=== PATIENT | female | born 1985 | race African-American/Black ===

== ENCOUNTER 2023-01-19 08:51 | Emergency (ER) | payer BC ==
--- OUTSIDE RECORDS SUMMARY | 2023-01-19 08:55 | XMS REPORT | Continuity of Care Document ---
:1985 Author Organization [facility] t Address [address] [facility] [address] [place] [address] Care Team Providers Name Role Phone PATY ALFREDO Primary Care Physician Unavailable ELAN OCHOA Attending Clinician Unavailable JANIA HUIZAR Attending Clinician Unavailable RADIOLOGY Attending Clinician Unavailable Radiology Attending Clinician Unavailable Karli NUGENT Attending Clinician Unavailable Karli Glover Attending Clinician Doctor Unassigned, [place] Attending Clinician Unavailable PATY ALFREDO Admitting Clinician Unavailable Payers Payer Name Policy Type Policy Number Effective Date Expiration Date [facility] BCBS 2 [id number] 2022 00:00:00 BCBS [facility] - [id number] 2022 00:00:00 OUT OF STATE Problems Condition Condition Condition Status Onset Resolution Last Treating Co mments Source Name Details Category Date Date Treatment Clinician Date QUENTIN on QUENTIN on Disease Active 2016-07 Univers CPAP CPAP 1-21 ity of 00:00: [address] Branch B12 B12 Disease Active Univers deficiency deficiency 8-05 it y of 00:00: [address] Branch Positive Positive Disease Active Unive rs ZULEYMA ZULEYMA 7-27 ity of (antin[place] Medical antibody) antibody) Bran ch Iron Iron Disease Active Univers deficiency deficiency 7-27 it y of anemia anemia 00:00: [place] 00 Medical Branch Contracept Contracept Disease Active U nivers aleisha aleisha 3-25 ity of [place] [facility] [place] Anxiety Anxiety Disease Active Univers disorder disorder 3-25 ity of 00:00: [place] 00 Medical Branch Bipolar Bipolar Disease Active Univers affective affective 3-25 ity of disorder, disorder, 00:00: Amanda vanessa current current Medical episode episode Branch manic manic without without psychotic psychotic symptoms symptoms Well woman Well woman Disease Active Overview : Univers exam exam 1-19 Formattin ity of 00:00: g of this [place] note Medical might be Branch different from the original. ICD10 Diagnosis Term [employer] Utility Seizure Seizure Disease Active Univers disorder disorder - ity of 00:00: [place] 00 Medical Branch Essential Essential Disease Active Uni vers hypertensi hypertensi -19 it y of on, benign [place], benign [place] [facility] Tobacco Tobacco Disease Active 2012-07 Univers use use 1-12 ity of disorder disorder 00:00: [place] [facility] Branch Morbid Morbid Disease Active 2012-07 Univers obesity obesity 1-12 ity of 00:00: [place] [facility] Allergies, Adverse Reactions, Alerts Allergy Allergy Status Severity Reaction(s) Onset Inactive Treating Comm ents Source Name Type Date Date Clinician NO KNOWN Drug Active [facility] [place] [facility] ALLERGIE Class ity of S [facility] Social History Social Habit Start Date Stop Date Quantity Comments Source History [facility] o f Alcohol Frequency [facility] History [facility] o f Alcohol Std Drinks [facility] History [facility] hospital o f Alcohol Binge [facility] History of tobacco Cigarette Smoker Kecia Richter - use External Alcohol intake 2022-08-27 2022-08-27 .86 /d Kecia hunter - 00:00:00 00:00:00 External Cigarettes smoked 2016-11-10 2016-11-10 Univers ity of current (pack per 00:00:00 00:00:00 [facility] ) - Reported Branch Cigarette 2016-11-10 2016-11-10 University of pack-years 00:00:00 00:00:00 [facility] Tobacco use and 2016-11-10 2016-11-10 Smokeless Universit y of exposure 00:00:00 00:00:00 tobacco non-user [facility] Alcohol Comment 2012-12-07 2012-12-07 every other Universi ty of 00:00:00 00:00:00 weekend [facility] Sex [birth year] Janet naranjoold - 00:00:00 00:00:00 External Smoking Status Start Date Stop Date Source Smokes tobacco daily 2022-08-27 00:00:00 Keciacaity Jimenezold - External Medications Ordered Filled Start Stop Current Ordering Indication Dosage Frequency Signature Comments Components Source Medication Medication Date Date Medication? Clinician (SIG) Name Name Amlodipine Yes 10mg Take 10 mg K elsey Besylate 10 2-15 by mouth Seyb old MG oral 11:03: daily - Tablet 39 Externa l Atenolol Yes 50mg Take 50 mg Sonido sey (TENORMIN) 2-15 by mouth Seybo ld 50 MG oral 11:03: daily - Tablet 39 Externa l Losartan Yes 1{tbl} Take 1 Kelse y Potassium-H 2-15 tablet by Sey bold CTZ 100-25 11:03: mouth - MG oral 39 daily Externa Tablet l buPROPion 2021-07- No 1{tbl} Take 1 Sonido sey HCl 75 MG 08-20-15 tablet by Seyb old oral Tablet 00:00: 00:00 mouth - 00 :00 every Externa morning l [place] 2021-07- No 1{capsu Take 1 Елена ey Carbonate 08-20 le} capsule by Sey bold 300 MG oral 00:00: 00:00 mouth 2 - Capsule 00 :00 times Externa daily l Olanzapine 2021-07- No 1{tbl} Take 1 Ke lsey (ZYPREXA) 5 08-20-15 tablet by ybold MG oral 00:00: 00:00 mouth at - tablet 00 :00 bedtime Externa l ketorolac 2021-07- No 30mg 30 mg, Unive rs (TORADOL) 0-18 10-18 Intramuscu ity of injection 16:15: 15:23 lar, ONCE, [place] 30 mg 00 :00 1 dose, On [facility] 04/29/22 at 1115, PENNY vitamin Yes 500ug Take 1 Univers B-12 8-18 tablet by ity of (VITAMIN 00:00: mouth [place] B-12) 500 00 daily. Medical mcg tablet Branch vitamin Yes 500ug Take 1 Univers B-12 8-18 tablet by ity of (VITAMIN 00:00: mouth [place] B-12) 500 00 daily. Medical mcg tablet Branch vitamin Yes 500ug Take 1 Univers B-12 8-18 tablet by ity of (VITAMIN 00:00: mouth [place] B-12) 500 00 daily. Medical mcg tablet Branch vitamin Yes 500ug Take 1 Univers B-12 8-18 tablet by ity of (VITAMIN 00:00: mouth [place] B-12) 500 00 daily. Medical mcg tablet Branch valsartan-h Yes [id number] 1{tbl} Take 1 Univers ydrochlorot 7-20 tablet by ity of hiazide 00:00: mouth [place] 160-25 mg 00 daily. Medical per tablet Branch valsartan-h Yes [id number] 1{tbl} Take 1 Univers ydrochlorot 7-20 tablet by ity of hiazide 00:00: mouth [place] 160-25 mg 00 daily. Medical per tablet Branch valsartan-h Yes [id number] 1{tbl} Take 1 Univers ydrochlorot 7-20 tablet by ity of hiazide 00:00: mouth [place] 160-25 mg 00 daily. Medical per tablet Branch valsartan-h Yes [id number] 1{tbl} Take 1 Univers ydrochlorot 7-20 tablet by ity of hiazide 00:00: mouth [place] 160-25 mg 00 daily. Medical per tablet Branch risperiDONE Yes Univer s 2 mg tablet 6-22 ity of 00:00: [place] 00 Medical Branch risperiDONE Yes Univer s 2 mg tablet 6-22 ity of 00:00: [place] 00 Medical Branch risperiDONE Yes Univer s 2 mg tablet 6-22 ity of 00:00: [place] 00 Medical Branch risperiDONE Yes Univer s 2 mg tablet 6-22 ity of 00:00: [place] 00 Medical Branch norgestimat Yes [id number] 1{tbl} Take 1 Univers e-ethinyl 5-03 tablet by ity o f estradiol 00:00: mouth [place] 0.18/0.215/ 00 daily. Medica l 0.25 mg-35 Branch mcg (28) tablet norgestimat 2017- Yes [id number] 1{tbl} Take 1 Univers e-ethinyl 5-03 tablet by ity o f estradiol 00:00: mouth [place] 0.18/0.215/ 00 daily. Medica l 0.25 mg-35 Branch mcg (28) tablet norgestimat Yes [id number] 1{tbl} Take 1 Univers e-ethinyl 5-03 tablet by ity o f estradiol 00:00: mouth [place] 0.18/0.215/ 00 daily. Medica l 0.25 mg-35 Branch mcg (28) tablet norgestimat Yes [id number] 1{tbl} Take 1 Univers e-ethinyl 5-03 tablet by ity o f estradiol 00:00: mouth [place] 0.18/0.215/ 00 daily. Medica l 0.25 mg-35 Branch mcg (28) tablet gabapentin Yes Univers 600 mg 3-01 ity of tablet 00:00: [place] [facility] gabapentin 2017-0 Yes Univers 600 mg 3-01 ity of tablet 00:00: [place] [facility] gabapentin 2017-0 Yes Univers 600 mg 3-01 ity of tablet 00:00: [address] gabapentin 2017-0 Yes Univers 600 mg 3-01 ity of tablet 00:00: [facility] amitriptyli [id number] Yes Univer s ne 25 mg 2-15 ity of tablet 00:00: [place] [facility] amitriptyli 20170 Yes Univer s ne 25 mg 2-15 ity of tablet 00:00: [place] [facility] amitriptyli 20170 Yes Univer s ne 25 mg 2-15 ity of tablet 00:00: [place] [facility] amitriptyli 20170 Yes Univer s ne 25 mg 2-15 ity of tablet 00:00: [address] Immunizations Ordered Filled Immunization Date Status Comments [facility] e Immunization Name Name TDAP 2012-06-23 [facility] 00:00:00 [facility] TDAP 2012-06-23 Completed University of 00:00:00 [facility] TDAP 2012-06-23 Completed University of 00:00:00 [facility] Branch TDAP 2012-06-23 Completed University of 00:00:00 [facility] Tdap- (Boostrix, 2012-06-23 Completed Kecia Vanessa eybold - Adacel) 00:00:00 External Rubella 2011-05-14 Completed University of 00:00:00 [facility] Rubella 2011-05-14 Completed University of 00:00:00 [facility] Rubella 2011-05-14 Completed University of 00:00:00 [facility] Rubella 2011-05-14 Completed University of 00:00:00 [facility] Rubella 2011-05-14 Completed Kecia ybold - 00:00:00 External Vital Signs Vital Name Observation Time Observation Value Comments Source Systolic blood 2022-08-27 16:55:00 126 mm[Hg] Kecia Seybold - pressure External Diastolic blood 2022-08-27 16:55:00 84 mm[Hg] Rusty dodson Seybold - pressure External Heart rate 2022-08-27 16:55:00 88 /min Kecia Otf crabtreebold - External Body temperature 2022-08-27 16:55:00 36.56 Nichol Елена ey Seybold - External Respiratory rate 2022-08-27 16:55:00 15 /min Елена ey Seybold - External Body height 2022-08-27 16:55:00 177.8 cm Kecia S eybold - External Body weight 2022-08-27 16:55:00 169.645 kg Keciacaity crabtreebold - External BMI 2022-08-27 16:55:00 53.66 kg/m2 Keciacaity crabtreebold - External Systolic blood 2022-04-29 14:10:00 163 mm[Hg] Univer sity of pressure [facility] Diastolic blood 2022-04-29 14:10:00 102 mm[Hg] Unive rsity of pressure [facility] Heart rate 2022-04-29 14:10:00 82 /min Universi ty of [facility] Body temperature 2022-04-29 14:10:00 37.5 Nichol Univ ersity of [facility] Respiratory rate 2022-04-29 14:10:00 18 /min [facility] Body weight 2022-04-29 14:10:00 171.233 kg [facility] BMI 2022-04-29 14:10:00 52.65 kg/m2 [facility] Oxygen saturation in 2022-04-29 14:10:00 100 /min University Arterial blood by [facility] Pulse oximetry Branch Procedures Procedure Date / Time Performed Performing Clinician Sour e NOTICE OF PRIVACY 2022-04-29 14:05:26 Doctor Unassigned, No [facility] PRACTICES Name Medical Branch CONSENT/REFUSAL FOR 2022-04-29 14:03:53 Doctor Unassigned, No [facility] DIAGNOSIS AND Name Medical Branch TREATMENT Encounters Start End Encounter Admission Attending Care Care Encounter Source Date/Time Date/Time Type Type Clinicians Facility Department ID 2022-11-06 2022-11-06 Outpatient KECIA OCHOA [id number] Kecia 00:00:00 00:00:00 ELAN Seybol d 2022-11-04 2022-11-04 Outpatient KECIA HUIZAR [id number] Kecia 00:00:00 00:00:00 JANIA Seybol waldemar 2022-09-30 2022-09-30 Outpatient KECIA OCHOA [id number] K[place]ia 00:00:00 00:00:00 ELAN Seybol waldemar 2022-09-29 2022-09-29 Outpatient KECIA OCHOA [id number] Kecia 00:00:00 00:00:00 ELAN Seybol d 2022-09-29 2022-09-29 Outpatient KECIA OCHOA [id number] Kecia 00:00:00 00:00:00 ELAN Seybol d 2022-09-24 2022-09-24 Outpatient KECIA HUIZAR [id number] Kecia 10:30:00 10:30:00 JANIA Seybol wlademar 2022-09-17 2022-09-17 Outpatient KECIA OCHOA [id number] Kecia 00:00:00 00:00:00 ELAN Seybol d 2022-09-11 2022-09-11 Outpatient KECIA MAHONEY [id number] K[place]ia 15:00:00 15:00:00 Seybol d 2022-09-11 2022-09-11 Outpatient KECIA MAHONEY [id number] Kecia 13:40:00 13:40:00 Seybol d 2022-09-09 2022-09-09 Outpatient KECIA OCHOA [id number] Kecia 00:00:00 00:00:00 ELAN Seybol d 2022-08-27 2022-08-27 Outpatient KECIA OCHOA [id number] Kecia 10:15:00 10:15:00 ELAN Seybol d 2022-07-01 2022-07-01 Outpatient KECIA OCHOA [id number] Kecia 11:00:00 11:00:00 ELAN Seybol d 2022-06-10 2022-06-10 Outpatient R RADIOLOGY [facility] [id number] Univers 12:14:52 23:59:00 ity of [facility] 2022-06-10 2022-06-10 Hospital Radiology [facility] [id number] Univers 12:14:52 23:59:00 Encounter [place] [id number] ity [facility] [id number] [facility] [id number] [facility] [address] [place] 2022-04-29 2022-04-29 Outpatient R RADIOLOGY [facility] [id number] Univers 11:46:50 23:59:00 ity of [facility] 2022-04-29 2022-04-29 Hospital Radiology [facility] [id number] Univers 11:45:00 23:59:00 Encounter [place] [id number] ity [facility] [id number] [facility] [id number] [facility] [address] [place] 2022-04-29 2022-04-29 Emergency X Karli NUGENT [facility] ERT [id number] Univers 09:13:00 10:49:00 ity of [facility] 2022-04-29 2022-04-29 Emergency Karli Nugent [facility] [id number] Univers 09:13:00 10:49:00 Yessica [place] [id number] i ty of [place] [id number] [place] [id number] [facility] 084 Branch 2022-04-29 2022-04-29 Orders Doctor CHRISTELLE [id number] Univers 00:00:00 00:00:00 Only Unassigned, KER[place] [id number] ity of [place] [facility] [id number] [place] [id number] [facility] 009 Branch Results This patient has no known results.
--- NOTE | 2023-01-19 09:11 | EDPHYS ---
Physician Documentation [facility] Name: Vibha Resendez Age: 37 yrs Sex: Female : 1985 Arrival Date: 01/19/2023 Time: 08:51 Bed 20 Private MD: ED Physician Thom Calles HPI: 01/19 09:18 This 37 yrs old Black Female presents to ER via Ambulatory with complaints of Eye sb4 Problem. 09:18 37 year old female with history of hypertension, bipolar, diverticulitis, obesity sb4 presents with complaints of bilateral eyelid swelling. She states it started a few days ago but today she could barely open her eyes when she woke up from work. She does state that she uses magnetic eyelashes. Denies any other trauma to the eye, allergy like symptoms, discharge, congestion, cough, fever, allergies. Historical: - Allergies: 09:07 No Known Allergies; eh3 - Home Meds: 09:07 losartan oral [Active]; Atenolol Oral [Active]; lithium carbonate Oral [Active]; eh3 - PMHx: 09:07 Hypertensive disorder; Compressed vertebrae; Sleep apnea; Diverticulitis; Vitamin D eh3 deficiency; Left ventricular atrophy; Bipolar disorder; - Immunization history:: Adult Immunizations up to date. - Social history:: Smoking status: Patient reports the use of cigarette tobacco products, smokes one-half pack cigarettes per day, Patient uses alcohol, weekly. ROS: 09:18 Constitutional: Negative for fever, chills, and weight loss. sb4 09:18 Eyes: Positive for bilateral eyelid swelling. 09:18 All other systems are negative. Exam: 09:18 Visual Acuity: sb4 09:18 Visual Acuity: not indicated, no blurry vision. 09:18 Constitutional: This is a well developed, well nourished patient who is awake, alert, and in no acute distress. Head/Face: Normocephalic, atraumatic. Cardiovascular: Regular rate and rhythm with a normal S1 and S2. Skin: Warm, dry with normal turgor. Normal color with no rashes, no lesions, and no evidence of cellulitis. MS/ Extremity: Pulses equal, no cyanosis. Neurovascular intact. Full, normal range of motion. Neuro: Awake and alert, GCS 15, oriented to person, place, time, and situation. Cranial nerves II-XII grossly intact. Motor strength 5/5 in all extremities. Sensory grossly intact. Cerebellar exam normal. Normal gait. 09:18 Eyes: Periorbital structures: appear normal, , Pupils: equal, round, and reactive to light and accomodation, Extraocular movements: intact throughout, Conjunctiva: normal, Corneas: are normal, Sclera: no appreciated abnormality, Anterior chamber: normal, Lids and lashes: edema, bilaterally. Vital Signs: 09:05 BP 125 / 90; Pulse 68; Resp 18; Temp 98.2(O); Pulse Ox 100% on R/A; Weight 166.47 kg; eh3 Height 5 ft. 10 in. ; Pain 7/10; 09:05 Body Mass Index 52.66 (166.47 kg, 177.8 cm) [facility] 09:05 Pain Scale: Adult [facility] MDM: 08:56 Patient medically screened. sb4 09:18 Differential diagnosis: chalazion, sty, contact dermatitis, allergic conjuncitivis. sb4 Data reviewed: vital signs, nurses notes, and as a result, I will discharge patient. Counseling: I had a detailed discussion with the patient and/or guardian regarding: the historical points, exam findings, and any diagnostic results supporting the discharge/admit diagnosis. ED course: Advised patient to stop using the magnetic lashes/glue as they are likely contributing to her swelling. Prescribed her a medrol dose pack and to take benadryl as needed and follow up with opthamology if symptoms do not resolve.. Administered Medications: 09:15 Drug: Dexamethasone IM 10 mg Route: IM; Site: left deltoid; [facility] 09:22 Follow up: Response: No adverse reaction [facility] Disposition: 10:48 Co-signature as Attending Physician, Thom Calles MD I reviewed the patient's care rn provided by the Advanced Practice Provider and agree with the diagnosis and treatment plan. Disposition Summary: 01/19/23 09:10 Discharge Ordered Location: Home sb4 Problem: new sb4 Symptoms: have improved sb4 Condition: Stable sb4 Diagnosis - Edema of left upper eyelid sb4 - Edema of right upper eyelid sb4 Followup: sb4 - With: Andrea Boo MD - When: 2 - 3 days - Reason: Recheck today's complaints, Re-evaluation by your physician Discharge Instructions: - Discharge Summary Sheet sb4 Forms: - Medication Reconciliation Form sb4 - Thank You Letter sb4 - Antibiotic Education sb4 - Prescription Opioid Use sb4 - [employer]_Portal_[email or web address].htm sb4 Prescriptions: - Medrol (Blayne) 4 mg Oral Tablets, Dose Pack - take 1 tablet by ORAL route as directed - follow package instructions; 1 sb4 packet; Refills: 0, Product Selection Permitted Signatures: Thom Calles MD MD rn Hall, Erin, RN RN 3 Natalee Holden PA-C PA-C sb4 Corrections: (The following items were deleted from the chart) 09:07 PMHx: Hypertension; 3 3 09:07 PMHx: Anemia; 3 3
--- NOTE | 2023-01-19 09:11 | ER ---
Nurse's Notes [facility] Name: Vibha Resendez Age: 37 yrs Sex: Female : 1985 Arrival Date: 01/19/2023 Time: 08:51 Bed 20 Private MD: Diagnosis: Edema of left upper eyelid;Edema of right upper eyelid Presentation: 01/19 09:05 Chief complaint: Patient states: bilateral eye pain, itching, and lid swelling, no eh3 discharge noted. Coronavirus screen: Vaccine status: Patient reports receiving the 2nd dose of the covid vaccine. Ebola Screen: No symptoms or risks identified at this time. Initial Sepsis Screen: Does the patient meet any 2 criteria? No. Patient's initial sepsis screen is negative. Does the patient have a suspected source of infection? No. Patient's initial sepsis screen is negative. Risk Assessment: Do you want to hurt yourself or someone else? Patient reports no desire to harm self or others. Onset of symptoms was January 19, 2023. 09:05 Method Of Arrival: Ambulatory [facility] 09:05 Acuity: HERIBERTO 4 eh3 Triage Assessment: 09:07 General: Appears in no apparent distress. uncomfortable, Behavior is calm, cooperative, eh3 appropriate for age. Pain: Complains of pain in right eye and left eye. EENT: Sclera/Cornea are reddened in right eye and left eye Lid(s) swollen. Neuro: Level of Consciousness is awake, alert, obeys commands, Oriented to person, place, time, situation. Cardiovascular: Capillary refill < 3 seconds Patient's skin is warm and dry. Respiratory: Airway is patent Respiratory effort is even, unlabored, Respiratory pattern is regular, symmetrical. GI: Abdomen is round non-distended. Derm: Skin is intact, is healthy with good turgor. Musculoskeletal: Circulation, motion, and sensation intact. Historical: - Allergies: :07 No Known Allergies; eh3 - Home Meds: :07 losartan oral [Active]; Atenolol Oral [Active]; lithium carbonate Oral [Active]; eh3 - PMHx: 09:07 Hypertensive disorder; Compressed vertebrae; Sleep apnea; Diverticulitis; Vitamin D eh3 deficiency; Left ventricular atrophy; Bipolar disorder; - Immunization history:: Adult Immunizations up to date. - Social history:: Smoking status: Patient reports the use of cigarette tobacco products, smokes one-half pack cigarettes per day, Patient uses alcohol, weekly. Screenin:05 [facility] ED Fall Risk Assessment (Adult) Score/Fall Risk Level 0 - 2 = Low Risk. Abuse eh3 screen: Denies threats or abuse. Denies injuries from another. Nutritional screening: No deficits noted. Tuberculosis screening: No symptoms or risk factors identified. Assessment: 09:05 Reassessment: No changes from previously documented assessment. See triage assessment. eh3 Vital Signs: 09:05 BP 125 / 90; Pulse 68; Resp 18; Temp 98.2(O); Pulse Ox 100% on R/A; Weight 166.47 kg; eh3 Height 5 ft. 10 in. ; Pain 7/10; 09:05 Body Mass Index 52.66 (166.47 kg, 177.8 cm) eh3 09:05 Pain Scale: Adult 3 ED Course: 08:54 Patient arrived in ED. rg4 08:55 Natalee Holden PA-C is [facility] sb4 08:55 Thom Calles MD is Attending Physician. sb4 08:57 Arm band placed on Patient placed in an exam room, on a stretcher. ll1 09:05 Loren Lemon, LORNE is Primary Nurse. eh3 09:05 Patient has correct armband on for positive identification. Bed in low position. Call 3 light in reach. Provided Education on: none. Pulse ox on. NIBP on. 09:07 Triage completed. eh3 09:09 Andrea Boo MD is Referral Physician. sb4 09:23 No provider procedures requiring assistance completed. Patient did not have IV access eh3 during this emergency room visit. Administered Medications: 09:15 Drug: Dexamethasone IM 10 mg Route: IM; Site: left deltoid; eh3 09:22 Follow up: Response: No adverse reaction eh3 Medication: 09:22 VIS not applicable for this client. eh3 Outcome: 09:10 Discharge ordered by . sb4 09:23 Discharged to home ambulatory. eh3 09:23 Condition: stable 09:23 Discharge instructions given to patient, Instructed on discharge instructions, follow up and referral plans. medication usage, Demonstrated understanding of instructions, follow-up care, medications, Prescriptions given X 1. 09:23 Patient left the ED. eh3 Signatures: Jeannette Harley rg4 Darryl Gonsales RN RN ll1 Loren Lemon RN RN eh3 Natalee Holden PA-C PA-C sb4 Corrections: (The following items were deleted from the chart) PMHx: Hypertension; eh3 eh3 PMHx: Anemia; eh3 eh3
[2023-01-19] MEDS ORDERED: dexAMETHasone 10 MG/ML VIAL ONE (09:22)
[2023-01-19 09:34] VITALS: BP 125/90; TEMP 98.2; O2SAT 100
== END 2023-01-19 09:23 | disposition home or self-care (01) ==
LOC: ER 08:51
DX: H02.844 Edema of left upper eyelid (principal); H02.841 Edema of right upper eyelid; F17.210 Nicotine dependence, cigarettes, uncomplicated
CPT/HCPCS: 96372; 99284; J1100

== ENCOUNTER 2023-01-19 09:45 | Emergency (ER) | payer BC ==
--- OUTSIDE RECORDS SUMMARY | 2023-01-19 09:48 | XMS REPORT | Continuity of Care Document ---
:1985 Author Organization [facility] t Address [address] [facility] [address] [place] [address] Care Team Providers Name Role Phone PATY ALFREDO Primary Care Physician Unavailable ELAN OCHOA Attending Clinician Unavailable JANIA HUIZAR Attending Clinician Unavailable RADIOLOGY Attending Clinician Unavailable Radiology Attending Clinician Unavailable Karli NUGENT Attending Clinician Unavailable Karli Glover Attending Clinician Doctor Unassigned, [place] Attending Clinician Unavailable PATY ALFREDO Admitting Clinician Unavailable Payers Payer Name Policy Type Policy Number Effective Date Expiration Date S [facility] [place] 2 [id number] 2022 00:00:00 BCBS [facility] - [id number] 2022 00:00:00 OUT OF STATE Problems Condition Condition Condition Status Onset Resolution Last Treating Co mments Source Name Details Category Date Date Treatment Clinician Date QUENTIN on QUENTIN on Disease Active 2016-07 Univers CPAP CPAP 1-21 ity of 00:00: [address] Branch B12 B12 Disease Active Univers deficiency deficiency 8-05 it y of 00:00: [address] Branch Positive Positive Disease Active Unive rs ZULEYMA ZULEYMA 7-27 ity of (antinucle [place] Medical antibody) antibody) Bran ch Iron Iron Disease Active Univers deficiency deficiency 7-27 it y of anemia anemia 00:00: [place] 00 Medical Branch Contracept Contracept Disease Active U nivers aleisha aleisha 3-25 [place] of management [place] [facility] Anxiety Anxiety Disease Active Univers disorder disorder 3-25 ity of 00:00: [place] 00 Medical Branch Bipolar Bipolar Disease Active Univers affective affective 3-25 ity of disorder, disorder, 00:00: Amadna vanessa current current Medical episode episode Branch manic manic without without psychotic psychotic symptoms symptoms Well woman Well woman Disease Active Overview : Univers exam exam 1-19 Formattin ity of 00:00: g of this [place] note Medical might be Branch different from the original. 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 Utility Seizure Seizure Disease Active Univers disorder disorder - ity of 00:00: [place] 00 Medical Branch Essential Essential Disease Active Uni vers hypertensi hypertensi -19 it y of on, benign on, benign [place] [facility] Tobacco Tobacco Disease Active 2012-07 Univers use use 1-12 ity of disorder disorder 00:00: [place] [facility] Branch Morbid Morbid Disease Active 2012-07 Univers obesity obesity 1-12 ity of 00:00: [place] [facility] Allergies, Adverse Reactions, Alerts Allergy Allergy Status Severity Reaction(s) Onset Inactive Treating Comm ents Source Name Type Date Date Clinician NO KNOWN Drug Active [facility] ALLERGIE Class ity of S [facility] Social History Social Habit Start Date Stop Date Quantity Comments Source History [facility] o f Alcohol Frequency [facility] History [facility] o f Alcohol Std Drinks [facility] History [facility] o f Alcohol Binge [facility] History of tobacco Cigarette Smoker Kecia Richter - use External Alcohol intake 2022-08-27 2022-08-27 .86 /d Kecia hunter - 00:00:00 00:00:00 External Cigarettes smoked 2016-11-10 2016-11-10 Univers ity of current (pack per 00:00:00 00:00:00 [facility] ) - Reported Branch Cigarette 2016-11-10 2016-11-10 University of pack-years 00:00:00 00:00:00 [facility] Tobacco use and 2016-11-10 2016-11-10 Smokeless Universit y of exposure 00:00:00 00:00:00 tobacco non-user [facility] Alcohol Comment 2012-12-07 2012-12-07 every other Universi ty of 00:00:00 00:00:00 weekend [facility] Sex Ass[birth year] At [birth year] Janet naranjoold - 00:00:00 00:00:00 External Smoking Status Start Date Stop Date Source Smokes tobacco daily 2022-08-27 00:00:00 Keciacaiyt Jimenezold - External Medications Ordered Filled Start [...] - 00 :00 every Externa morning l Anselmo 2021-07- No 1{capsu Take 1 Елена ey [...] 30 mg 00 :00 1 dose, On [facility] 04/29/22 at 1115, PENNY vitamin Yes 500ug [...] daily. Medical mcg tablet Branch valsartan-h Yes [id number] 1{tbl} Take 1 Univers ydrochlorot 7-20 tablet by ity of hiazide 00:00: mouth [place] 160-25 mg 00 daily. Medical per tablet Branch valsartan-h Yes [id number] 1{tbl} Take 1 Univers ydrochlorot 7-20 tablet by ity of hiazide 00:00: mouth [place] 160-25 mg 00 daily. Medical per tablet Branch valsartan-h Yes [id number] 1{tbl} Take 1 Univers ydrochlorot 7-20 tablet by ity of hiazide 00:00: mouth [place] 160-25 mg 00 daily. Medical per tablet Branch valsartan-h Yes [id number] 1{tbl} Take 1 Univers ydrochlorot 7-20 tablet [...] 00:00: [place] 00 Medical Branch norgestimat Yes [id number] 1{tbl} Take 1 Univers e-ethinyl 5-03 tablet by ity o f estradiol 00:00: mouth [place] 0.18/0.215/ 00 daily. Medica l 0.25 mg-35 Branch mcg (28) tablet norgestimat 2017- Yes [id number] 1{tbl} Take 1 Univers e-ethinyl 5-03 tablet by ity o f estradiol 00:00: mouth [place] 0.18/0.215/ 00 daily. Medica l 0.25 mg-35 Branch mcg (28) tablet norgestimat Yes [id number] 1{tbl} Take 1 Univers e-ethinyl 5-03 tablet by ity o f estradiol 00:00: mouth [place] 0.18/0.215/ 00 daily. Medica l 0.25 mg-35 Branch mcg (28) tablet norgestimat Yes [id number] 1{tbl} Take 1 Univers e-ethinyl 5-03 tablet by ity o f estradiol 00:00: mouth [place] 0.18/0.215/ 00 daily. Medica l 0.25 mg-35 Branch mcg (28) tablet gabapentin Yes Univers 600 mg 3-01 ity of tablet 00:00: [place] [facility] gabapentin 2017-0 Yes Univers 600 mg 3-01 ity of tablet 00:00: [place] [facility] gabapentin 2017-0 Yes Univers 600 mg 3-01 ity of tablet 00:00: [address] gabapentin 2017-0 Yes Univers 600 mg 3-01 ity of tablet 00:00: [facility] amitriptyli [id number] Yes Univer s ne 25 mg 2-15 ity of tablet 00:00: [place] [facility] amitriptyli 20170 Yes Univer s ne 25 mg 2-15 ity of tablet 00:00: [place] [facility] amitriptyli 20170 Yes Univer s ne 25 mg 2-15 ity of tablet 00:00: [place] [facility] amitriptyli 20170 Yes Univer s ne 25 mg 2-15 ity of tablet 00:00: [address] Immunizations Ordered Filled Immunization Date Status Comments [facility] e Immunization Name Name TDAP 2012-06-23 [facility] 00:00:00 [facility] TDAP 2012-06-23 Completed University of 00:00:00 [facility] TDAP 2012-06-23 Completed University of 00:00:00 [facility] Branch TDAP 2012-06-23 Completed University of 00:00:00 [facility] Tdap- (Boostrix, 2012-06-23 Completed Kecia Vanessa eybold - Adacel) 00:00:00 External Rubella 2011-05-14 Completed University of 00:00:00 [facility] Rubella 2011-05-14 Completed University of 00:00:00 [facility] Rubella 2011-05-14 Completed University of 00:00:00 [facility] Rubella 2011-05-14 Completed University of 00:00:00 [facility] Rubella 2011-05-14 Completed Kecia ybold - 00:00:00 [...] 14:10:00 163 mm[Hg] Univer sity of pressure [facility] Diastolic blood 2022-04-29 14:10:00 102 mm[Hg] Unive rsity of pressure [facility] Heart rate 2022-04-29 14:10:00 82 /min Universi ty of [facility] Body temperature 2022-04-29 14:10:00 37.5 Nichol Univ ersity of [facility] Respiratory rate 2022-04-29 14:10:00 18 /min [facility] Body weight 2022-04-29 14:10:00 171.233 kg General acute hospital BMI 2022-04-29 14:10:00 52.65 kg/m2 General acute hospital Oxygen saturation in 2022-04-29 14:10:00 100 /min University Arterial blood by [facility] Pulse oximetry Branch Procedures Procedure Date / Time Performed Performing Clinician Sour e NOTICE OF PRIVACY 2022-04-29 14:05:26 Doctor Unassigned, No [facility] PRACTICES Name Medical Branch CONSENT/REFUSAL FOR 2022-04-29 14:03:53 Doctor Unassigned, No [facility] DIAGNOSIS AND Name Medical Branch TREATMENT Encounters Start End Encounter Admission Attending Care Care Encounter Source Date/Time Date/Time Type Type Clinicians Facility Department ID 2022-11-06 2022-11-06 Outpatient KECIA OCHOA [id number] Kecia 00:00:00 00:00:00 ELAN Seybol d 2022-11-04 2022-11-04 Outpatient KECIA HUIZAR [id number] Kecia 00:00:00 00:00:00 JANIA Seybol waldemar 2022-09-30 2022-09-30 Outpatient KECIA OCHOA [id number] Kecia 00:00:00 00:00:00 ELAN Seybol waldemar 2022-09-29 2022-09-29 Outpatient KECIA OCHOA [id number] Kecia 00:00:00 00:00:00 ELAN Seybol d 2022-09-29 2022-09-29 Outpatient KECIA OCHOA [id number] Kecia 00:00:00 00:00:00 ELAN Seybol d 2022-09-24 2022-09-24 Outpatient KECIA HUIZAR [id number] [facility]ia 10:30:00 10:30:00 JANIA Seybol waldemar 2022-09-17 2022-09-17 Outpatient KECIA OCHOA [id number] Kecia 00:00:00 00:00:00 ELAN Seybol d 2022-09-11 2022-09-11 Outpatient KECIA MAHONEY [id number] K[facility]ia 15:00:00 15:00:00 Seybol d 2022-09-11 2022-09-11 Outpatient KECIA MAHONEY [id number] Kecia 13:40:00 13:40:00 Seybol d 2022-09-09 2022-09-09 Outpatient KECIA OCHOA [id number] Kecia 00:00:00 00:00:00 ELAN Seybol d 2022-08-27 2022-08-27 Outpatient KECIA OCHOA [id number] Kecia 10:15:00 10:15:00 ELAN Seybol d 2022-07-01 2022-07-01 Outpatient KECIA OCHOA [id number] Kecia 11:00:00 11:00:00 ELAN Seybol d 2022-06-10 2022-06-10 Outpatient R RADIOLOGY [facility] [id number] Univers 12:14:52 23:59:00 ity of [facility] 2022-06-10 2022-06-10 Hospital Radiology [facility] [id number] Univers 12:14:52 23:59:00 Encounter [place] [id number] ity [facility] [id number] [facility] [id number] [facility] 807 [place] 2022-04-29 2022-04-29 Outpatient R RADIOLOGY [facility] [id number] Univers 11:46:50 23:59:00 ity of [facility] 2022-04-29 2022-04-29 Hospital Radiology [facility] [id number] Univers 11:45:00 23:59:00 Encounter [place] [id number] ity [facility] [id number] [facility] [id number] [facility] 807 [address] 2022-04-29 2022-04-29 Emergency X Karli NUGENT [facility] ERT [id number] Univers 09:13:00 10:49:00 ity of [facility] 2022-04-29 2022-04-29 Emergency Karli Nugent [facility] [id number] Univers 09:13:00 10:49:00 Yessica [place] [id number] i ty of [id number] [place] [id number] [facility] 084 Branch 2022-04-29 2022-04-29 Orders Doctor CHRISTELLE [id number] Univers 00:00:00 00:00:00 Only Unassigned, KER[place] [id number] ity of [place] [facility] [id number] [place] [id number] [facility] 009 Branch Results This patient has no known results.
[2023-01-19] MEDS ORDERED: DIPHENHYDRAMINE 50 MG/ML VIAL ONE (10:12)
--- NOTE | 2023-01-19 12:21 | RAD REPORT ---
EXAM DESCRIPTION: Janak Single View01/19/2023 11:04 am CLINICAL HISTORY: DYSPNEA COMPARISON: Chest Pa And Lat (2 Views) dated 06/07/2018 TECHNIQUE: Portable AP view of the chest. FINDINGS: The lungs are clear apart from increased density in the mid hemothorax region, may relate to superimposition of soft tissue. Possibility of central interstitial prominence/opacification remai ns. No pneumothorax or effusion. The cardiomediastinal contours are unremarkable. IMPRESSION: Artifactual increased central prominence versus interstitial opacification as above. No other acute findings.
--- NOTE | 2023-01-19 12:28 | ER ---
Nurse's Notes [facility] Name: Vibha Resendez Age: 37 yrs Sex: Female : 1985 Arrival Date: 01/19/2023 Time: 09:45 Bed 12 Private MD: Diagnosis: Dyspnea, unspecified Presentation: 01/19 09:53 Chief complaint: Patient states: Started to get SOB and eyes watering after her ll1 injection here 20 minutes ago. Coronavirus screen: Vaccine status: Patient reports receiving the 2nd dose of the covid vaccine. Client denies travel out of the [place] in the last 14 days. At this time, the client does not indicate any symptoms associated with coronavirus-19. Ebola Screen: Patient denies travel to an Ebola-affected area in the 21 days before illness onset. Onset: The symptoms/episode began/occurred suddenly. Anaphylaxis evaluation, no signs or symptoms of anaphylaxis were noted. Initial Sepsis Screen: Does the patient meet any 2 criteria? No. Patient's initial sepsis screen is negative. Does the patient have a suspected source of infection? No. Patient's initial sepsis screen is negative. Risk Assessment: Do you want to hurt yourself or someone else? Patient reports no desire to harm self or others. Onset of symptoms was January 19, 2023. 09:53 Method Of Arrival: Ambulatory ll1 09:53 Acuity: HERIBERTO 4 ll1 Triage Assessment: 09:55 General: Appears in no apparent distress. Behavior is calm, cooperative, appropriate ll1 for age. Pain: Denies pain. EENT: Reports eyes watering. Respiratory: Reports shortness of breath. 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 - Social history:: Smoking status: Patient denies any tobacco usage or history of. - Family history:: not pertinent. - Hospitalizations: : No recent hospitalization is reported. Screenin:18 [facility] ED Fall Risk Assessment (Adult) Score/Fall Risk Level 0 - 2 = Low Risk ll1 Oriented to surroundings, Maintained a safe environment, Educated pt \T\ family on fall prevention, incl call for assistance when getting out of bed, Hourly rounding (assess needs \T\ fall precautionary measures) done. Abuse screen: Denies threats or abuse. Nutritional screening: No deficits noted. Tuberculosis screening: No symptoms or risk factors identified. Assessment: 10:18 Reassessment: No changes from previously documented assessment. Patient and/or family ll1 updated on plan of care and expected duration. Pain level reassessed. Patient is alert, oriented x 3, equal unlabored respirations, skin warm/dry/pink. 10:53 Reassessment: No changes from previously documented assessment. Patient and/or family ll1 updated on plan of care and expected duration. Pain level reassessed. Patient is alert, oriented x 3, equal unlabored respirations, skin warm/dry/pink. Patient states feeling better. Patient states symptoms have improved. 12:36 Reassessment: No changes from previously documented assessment. Patient and/or family ll1 updated on plan of care and expected duration. Pain level reassessed. Patient is alert, oriented x 3, equal unlabored respirations, skin warm/dry/pink. Respiratory: Airway is patent Respiratory effort is even, unlabored, Breath sounds are clear bilaterally. Vital Signs: 09:53 BP 125 / 85; Pulse 68; Resp 17; Temp 97.9; Pulse Ox 100% ; ll1 12:30 BP 130 / 91; Pulse 61; Resp 17; Pulse Ox 100% ; ll1 ED Course: 09:53 Patient arrived in ED. mr 09:53 Arm band placed on Patient placed in an exam room, on a stretcher. ll1 09:55 Thom Calles MD is Attending Physician. rn 09:55 Triage completed. ll1 10:01 Darryl Gonsales, LORNE is Primary Nurse. ll1 10:19 Patient has correct armband on for positive identification. Bed in low position. Call ll1 light in reach. air sampling and monitoring on. 11:06 XRAY Chest (1 view) In Process Unspecified. EDMS 12:36 No provider procedures requiring assistance completed. Patient did not have IV access ll1 during this emergency room visit. 12:37 Provided Education on: n/a. ll1 Administered Medications: 10:12 Drug: diphenhydrAMINE IM 25 mg Route: IM; Site: right deltoid; ll1 10:53 Follow up: Response: No adverse reaction; RASS: Alert and Calm (0) ll1 Medication: 12:37 VIS not applicable for this client. ll1 Outcome: 12:28 Discharge ordered by . rn 12:37 Discharged to home ambulatory. ll1 12:37 Condition: stable 12:37 Discharge instructions given to patient, Instructed on discharge instructions, follow up and referral plans. Demonstrated understanding of instructions, follow-up care. 12:37 Patient left the ED. ll1 Signatures: Dispatcher [employer] Callie Andrews Roman, MD MD rn Lewis, Lynsay, RN RN ll1
--- NOTE | 2023-01-19 12:29 | EDPHYS ---
Physician Documentation [facility] Name: Vibha Resendez Age: 37 yrs Sex: Female : 1985 Arrival Date: 01/19/2023 Time: 09:45 Bed 12 Private MD: ED Physician Thom Calles HPI: 01/19 10:04 This 37 yrs old Black Female presents to ER via Ambulatory with complaints of possible rn Allergic Reaction. 10:04 The patient presents with shortness of breath. Onset: The symptoms/episode rn began/occurred just prior to arrival. Associated signs and symptoms: Pertinent positives: shortness of breath, Pertinent negatives: Altered mental status hives, rash, swelling, Syncope. Possible causes: Severity of symptoms: At their worst the symptoms were mild in the emergency department the symptoms have improved. The patient has not experienced similar symptoms in the past. The patient has been recently seen at the [facility] Emergency Department. Pt just seen in this ER for sob, was treated with shot of decadron for eyelid swelling from artificial eyelashes. Discharged, then felt sob, so walked back to ER for reeval. No fever. NO rash. No itching. . 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 - Social history:: Smoking status: Patient denies any tobacco usage or history of. - Family history:: not pertinent. - Hospitalizations: : No recent hospitalization is reported. ROS: 10:04 Constitutional: Negative for fever, chills, and weight loss, Cardiovascular: Negative rn for palpitations, and edema, Respiratory: + sob Abdomen/GI: Negative for abdominal pain, nausea, vomiting, diarrhea, and constipation, MS/Extremity: Negative for injury and deformity, Skin: Negative for injury, rash, and discoloration, Neuro: Negative for headache, weakness, numbness, tingling, and seizure. Exam: 10:04 Constitutional: This is a well developed, well nourished patient who is awake, alert, rn and in no acute distress. Using phone, ambulating normal without distress ENT: NO stridor. Cardiovascular: Regular rate and rhythm. No pulse deficits. Respiratory: Clear bilateral breath sounds. No increased work of breathing, no retractions or nasal flaring. Skin: Warm, dry Neuro: Awake and alert, GCS 15 13:16 ECG was reviewed by the Attending Physician. rn Vital Signs: 09:53 BP 125 / 85; Pulse 68; Resp 17; Temp 97.9; Pulse Ox 100% ; ll1 12:30 BP 130 / 91; Pulse 61; Resp 17; Pulse Ox 100% ; ll1 MDM: 09:55 Patient medically screened. rn 12:26 Differential diagnosis: allergic reaction, adverse reaction to decadron, anxiety. Data rn reviewed: vital signs, nurses notes, EKG, radiologic studies, plain films, and as a result, I will discharge patient. Counseling: I had a detailed discussion with the patient and/or guardian regarding: the historical points, exam findings, and any diagnostic results supporting the discharge/admit diagnosis, lab results, radiology results, the need for outpatient follow up, to return to the emergency department if symptoms worsen or persist or if there are any questions or concerns that arise at home. Response to treatment: the patient's symptoms have markedly improved after treatment, and as a result, I will discharge patient. Special discussion: I discussed with the patient/guardian in detail that at this point there is no indication for admission to the hospital. It is understood, however, that if the symptoms persist or worsen the patient needs to return immediately for re-evaluation. ED course: Pt denies recent infection or infectious symptoms, no fever, no chills, will dc home with return precautions. TOld to take benadryl for eye symptoms and good idea to not take the steroids. . 01/19 09:59 Order name: XRAY Chest (1 view); Complete Time: 12:22 rn 01/19 09:59 Order name: EKG; Complete Time: 10:00 rn 01/19 09:59 Order name: EKG - Nurse/Tech; Complete Time: 10:01 rn EC:16 Rate is 66 beats/min. Rhythm is regular. QRS [place] is Normal. AL interval is normal. QRS rn interval is normal. QT interval is normal. No Q waves. T waves are Normal. No ST changes noted. Clinical impression: NSR w/ Non-specific ST/T Changes. Interpreted by me. Reviewed by me. Administered Medications: 10:12 Drug: diphenhydrAMINE IM 25 mg Route: IM; Site: right deltoid; ll1 10:53 Follow up: Response: No adverse reaction; RASS: Alert and Calm (0) ll1 Disposition Summary: 01/19/23 12:28 Discharge Ordered Location: Home rn Problem: new rn Symptoms: have improved rn Condition: Stable rn Diagnosis - Dyspnea, unspecified rn Followup: rn - With: Private Physician - When: As needed - Reason: Recheck today's complaints, Re-evaluation by your physician Discharge Instructions: - Discharge Summary Sheet rn - Shortness of Breath, Adult rn Forms: - Medication Reconciliation Form rn - Thank You Letter rn - Antibiotic government minister - Prescription Opioid Use rn - [email or web address] rn - Work release form ds4 Signatures: Dispatcher [employer] Thom Palafox MD MD rn Lewis, Lynsay, RN RN 1
[2023-01-19 12:57] VITALS: BP 125/85; TEMP 97.9; O2SAT 100
--- NOTE | 2023-01-20 20:26 | EKG ---
Test Date: 2023-01-19 Test Time: 10:24:00 Production Support Manager: ALEJO MEASUREMENT RESULTS: Intervals: Rate: 66 CO: 154 QRSD: 82 QT: 420 QTc: 440 [place]: P: 28 CO: 154 QRS: 31 T: 10 INTERPRETIVE STATEMENTS: Normal sinus rhythm Low voltage QRS Borderline ECG Compared to ECG 06/07/2018 13:08:42 Low QRS voltage now present Electronically Signed On 01-20-23 20:23:52 CDT by Dileep Batista
== END 2023-01-19 12:37 | disposition home or self-care (01) ==
LOC: ER 09:45
DX: R06.00 Dyspnea, unspecified (principal)
CPT/HCPCS: 93005; 71045; 96372; 99284; J1200

== ENCOUNTER 2023-02-06 09:07 | Emergency (ER) | payer BC ==
--- OUTSIDE RECORDS SUMMARY | 2023-02-06 09:10 | XMS REPORT | Continuity of Care Document ---
:1985 Author Organization [facility] t Address [address] [facility] [address] [place] [address] Care Team Providers Name Role Phone PATY ALFREDO Primary Care Physician Unavailable ELAN OCHOA Attending Clinician Unavailable JANIA HUIZAR Attending Clinician Unavailable RADIOLOGY Attending Clinician Unavailable Radiology Attending Clinician Unavailable Karli NUGENT Attending Clinician Unavailable Karli Glover Attending Clinician Doctor Unassigned, [place] Attending Clinician Unavailable PATY ALFREDO Admitting Clinician Unavailable Payers Payer Name Policy Type Policy Number Effective Date Expiration Date S [facility] BCBS 2 [id number] 2022 00:00:00 BCBS [facility] - [id number] 2022 00:00:00 OUT OF STATE Problems Condition Condition Condition Status Onset Resolution Last Treating Co mments Source Name Details Category Date Date Treatment Clinician Date QUENTIN on QUENTIN on Disease Active 2016-07 Univers CPAP CPAP 1-21 ity of 00:00: [address] Branch B12 B12 Disease Active Univers deficiency deficiency 8-05 it y of 00:00: [address] Branch Positive Positive Disease Active Unive rs ZULEYMA ZULEYMA 7-27 ity of (antinucle [place] Medical antibody) antibody) Bran ch Iron Iron Disease Active Univers deficiency deficiency 7-27 it y of anemia anemia 00:00: [place] 00 Medical Branch Contracept Contracept Disease Active U nivers aleisha aleisha 3-25 ity of management [place] [facility] Branch Anxiety Anxiety Disease Active Univers disorder [...] different from the original. ICD10 Diagnosis Term [employer] Utility Seizure Seizure Disease Active Univers disorder disorder - ity of 00:00: [place] 00 Medical Branch Essential Essential Disease Active Uni vers hypertensi hypertensi -19 it y of on, benign [place], benign [place] [facility] Tobacco Tobacco Disease Active 2012-07 Univers use use 1-12 ity of disorder disorder 00:00: [place] [facility] Branch Morbid Morbid Disease Active 2012-07 Univers obesity obesity 1-12 ity of 00:00: [place] [facility] Allergies, Adverse Reactions, Alerts Allergy Allergy Status Severity Reaction(s) Onset Inactive Treating Comm ents Source Name Type Date Date Clinician NO KNOWN Drug Active [facility] ALLERGIE Class ity of S [facility] Social History Social Habit Start Date Stop Date Quantity Comments Source History [facility] o f Alcohol Frequency [facility] History [facility] o f Alcohol Std Drinks [facility] History [facility] o f Alcohol Binge [facility] History of tobacco Cigarette Smoker Kecia Richter - use External Alcohol intake 2022-08-27 2022-08-27 .86 /d Kecia hunter - 00:00:00 00:00:00 External Cigarettes smoked 2016-11-10 2016-11-10 Univers ity of current (pack per 00:00:00 00:00:00 [facility] ) - Reported Branch Cigarette 2016-11-10 2016-11-10 University of pack-years 00:00:00 00:00:00 [facility] Tobacco use and 2016-11-10 2016-11-10 Smokeless Universit y of exposure 00:00:00 00:00:00 tobacco non-user [facility] Alcohol Comment 2012-12-07 2012-12-07 every other Universi ty of 00:00:00 00:00:00 weekend [facility] Sex Assigned At [birth year] [...] - 00 :00 every Externa morning l [place] 2021-07- No 1{capsu Take 1 Елена ey [...] 30 mg 00 :00 1 dose, On [facility] 04/29/22 at 1115, PENNY vitamin Yes 500ug [...] daily. Medical mcg tablet Branch valsartan-h Yes [id number] 1{tbl} Take 1 Univers ydrochlorot 7-20 tablet by ity of hiazide 00:00: mouth [place] 160-25 mg 00 daily. Medical per tablet Branch valsartan-h Yes [id number] 1{tbl} Take 1 Univers ydrochlorot 7-20 tablet by ity of hiazide 00:00: mouth [place] 160-25 mg 00 daily. Medical per tablet Branch valsartan-h Yes [id number] 1{tbl} Take 1 Univers ydrochlorot 7-20 tablet by ity of hiazide 00:00: mouth [place] 160-25 mg 00 daily. Medical per tablet Branch valsartan-h Yes [id number] 1{tbl} Take 1 Univers ydrochlorot 7-20 tablet [...] 00:00: [place] 00 Medical Branch norgestimat Yes [id number] 1{tbl} Take 1 Univers e-ethinyl 5-03 tablet by ity o f estradiol 00:00: mouth [place] 0.18/0.215/ 00 daily. Medica l 0.25 mg-35 Branch mcg (28) tablet norgestimat 2017- Yes [id number] 1{tbl} Take 1 Univers e-ethinyl 5-03 tablet by ity o f estradiol 00:00: mouth [place] 0.18/0.215/ 00 daily. Medica l 0.25 mg-35 Branch mcg (28) tablet norgestimat Yes [id number] 1{tbl} Take 1 Univers e-ethinyl 5-03 tablet by ity o f estradiol 00:00: mouth [place] 0.18/0.215/ 00 daily. Medica l 0.25 mg-35 Branch mcg (28) tablet norgestimat Yes [id number] 1{tbl} Take 1 Univers e-ethinyl 5-03 tablet by ity o f estradiol 00:00: mouth [place] 0.18/0.215/ 00 daily. Medica l 0.25 mg-35 Branch mcg (28) tablet gabapentin Yes Univers 600 mg 3-01 ity of tablet 00:00: [place] [facility] gabapentin 2017-0 Yes Univers 600 mg 3-01 ity of tablet 00:00: [place] [facility] gabapentin 2017-0 Yes Univers 600 mg 3-01 ity of tablet 00:00: [address] gabapentin 2017-0 Yes Univers 600 mg 3-01 ity of tablet 00:00: [facility] amitriptyli 20170 Yes Univer s ne 25 mg 2-15 ity of tablet 00:00: [place] [facility] amitriptyli 20170 Yes Univer s ne 25 mg 2-15 ity of tablet 00:00: [place] [facility] amitriptyli 20170 Yes Univer s ne 25 mg 2-15 ity of tablet 00:00: [place] [facility] amitriptyli 20170 Yes Univer s ne 25 mg 2-15 ity of tablet 00:00: [address] Immunizations Ordered Filled Immunization Date Status Comments [facility] e Immunization Name Name TDAP 2012-06-23 [facility] 00:00:00 [facility] TDAP 2012-06-23 Completed University of 00:00:00 [facility] TDAP 2012-06-23 Completed University of 00:00:00 [facility] Branch TDAP 2012-06-23 Completed University of 00:00:00 [facility] Tdap- (Boostrix, 2012-06-23 Completed Kecia Vanessa eybold - Adacel) 00:00:00 External Rubella 2011-05-14 Completed University of 00:00:00 [facility] Rubella 2011-05-14 Completed University of 00:00:00 [facility] Rubella 2011-05-14 Completed University of 00:00:00 [facility] Rubella 2011-05-14 Completed University of 00:00:00 [facility] Rubella 2011-05-14 Completed Kecia ybold [...] 14:10:00 163 mm[Hg] Univer sity of pressure [facility] Diastolic blood 2022-04-29 14:10:00 102 mm[Hg] Unive rsity of pressure [facility] Heart rate 2022-04-29 14:10:00 82 /min Universi ty of [facility] Body temperature 2022-04-29 14:10:00 37.5 Nichol Univ ersity of [facility] Respiratory rate 2022-04-29 14:10:00 18 /min [facility] Body weight 2022-04-29 14:10:00 171.233 kg [facility] BMI 2022-04-29 14:10:00 52.65 kg/m2 [facility] Oxygen saturation in 2022-04-29 14:10:00 100 /min University Arterial blood by [facility] Pulse oximetry Branch Procedures Procedure Date / Time Performed Performing Clinician Sour e NOTICE OF PRIVACY 2022-04-29 14:05:26 Doctor Unassigned, No [facility] PRACTICES Name Medical Branch CONSENT/REFUSAL FOR 2022-04-29 14:03:53 Doctor Unassigned, No [facility] DIAGNOSIS AND Name Medical Branch TREATMENT Encounters Start End Encounter Admission Attending Care Care Encounter Source Date/Time Date/Time Type Type Clinicians Facility Department ID 2022-11-06 2022-11-06 Outpatient KECIA OCHOA [id number] Kecia 00:00:00 00:00:00 ELAN Seybol d 2022-11-04 2022-11-04 Outpatient KECIA HUIZAR [id number] [facility] 00:00:00 00:00:00 JANIA Seybol waldemar 2022-09-30 2022-09-30 Outpatient KECIA OCHOA [id number] [facility] 00:00:00 00:00:00 ELAN Seybol waldemar 2022-09-29 2022-09-29 Outpatient KECIA OCHOA [id number] [facility]ecia 00:00:00 00:00:00 ELAN Seybol d 2022-09-29 2022-09-29 Outpatient KECIA OCHOA [id number] Kecia 00:00:00 00:00:00 ELAN Seybol d 2022-09-24 2022-09-24 Outpatient KECIA HUIZAR [id number] [place] 10:30:00 10:30:00 JANIA Seybol waldemar 2022-09-17 2022-09-17 Outpatient KECIA OCHOA [id number] Kecia 00:00:00 00:00:00 ELAN Seybol d 2022-09-11 2022-09-11 Outpatient KECIA MAHONEY [id number] [facility] 15:00:00 15:00:00 Seybol d 2022-09-11 2022-09-11 Outpatient KECIA MAHONEY [id number] [place] 13:40:00 13:40:00 Seybol d 2022-09-09 2022-09-09 Outpatient KECIA OCHOA [id number] [place] 00:00:00 00:00:00 ELAN Seybol d 2022-08-27 2022-08-27 Outpatient KECIA OCHOA [id number] [place] 10:15:00 10:15:00 ELAN Seybol d 2022-07-01 2022-07-01 Outpatient KECIA OCHOA [id number] [place] 11:00:00 11:00:00 ELAN Seybol d 2022-06-10 2022-06-10 Outpatient R RADIOLOGY [facility] [id number] Univers 12:14:52 23:59:00 ity of [facility] 2022-06-10 2022-06-10 Hospital Radiology [facility] [id number] Univers 12:14:52 23:59:00 Encounter [place] [id number] ity [facility] [id number] [facility] [id number] [facility] [address] 2022-04-29 2022-04-29 Outpatient R RADIOLOGY [facility] [id number] Univers 11:46:50 23:59:00 ity of [facility] 2022-04-29 2022-04-29 Hospital Radiology [facility] [id number] Univers 11:45:00 23:59:00 Encounter [place] [id number] ity [facility] [id number] [facility] [id number] [facility] [address] 2022-04-29 2022-04-29 Emergency X Karli NUGENT [facility] ERT [id number] Univers 09:13:00 10:49:00 ity of [facility] 2022-04-29 2022-04-29 Emergency Karli Nugent [facility] [id number] Univers 09:13:00 10:49:00 Yessica [place] [id number] i ty [id number] [id number] [facility] [address] Branch 2022-04-29 2022-04-29 Orders Doctor CHRISTELLE [id number] Univers 00:00:00 00:00:00 Only Unassigned, [place] [id number] ity of [place] [facility] [id number] [place] [id number] [facility] [address] Branch Results This patient has no known results.
[2023-02-06] MEDS ORDERED: predniSONE 20 MG TAB ONE (09:32)
[2023-02-06] MEDS ORDERED: FAMOTIDINE 20 MG TAB ONE (09:32)
--- NOTE | 2023-02-06 09:53 | RAD REPORT ---
EXAM DESCRIPTION: RAD - Lumbar Spine 3 Views - 02/06/2023 9:41 am CLINICAL HISTORY: Pain;Lower back pain COMPARISON: [facility] Protocol dated 03/01/2017 FINDINGS/IMPRESSION: No acute fracture. Grade 1 anterolisthesis of L5 on S1. Mild endplate spurring present at multiple levels. Limbus vertebral body at L3.
--- NOTE | 2023-02-06 09:58 | EDPHYS ---
Physician Documentation [facility] Name: Vibha Resendez Age: 37 yrs Sex: Female : 1985 Arrival Date: 02/06/2023 Time: 09:07 Bed 20 Private MD: ED Physician Srinath Rose HPI: 02/06 09:24 This 37 yrs old Black Female presents to ER via Ambulatory with complaints of Back snw Pain, Hip Pain. 09:24 The patient presents with pain that is acute, with no known mechanism of injury. The snw symptoms are located in the low back. Onset: The symptoms/episode began/occurred chronically and then exacerbated this am, pt states right leg gave out and she fell to buttock. The pain radiates to the right lower back and right gluteus lacey. Associated signs and symptoms: The patient has no apparent associated signs or symptoms. The problem was sustained getting up from bed. Severity of symptoms: At their worst the symptoms were mild, moderate. The patient has experienced similar episodes in the past, chronically. has seen ortho for complaint, was given tizanidine, diclofenac, and T#3 distantly. Pt ambulated to ED room #20 without difficulty . Historical: - Allergies: 09:20 No Known Allergies; hb - Home Meds: 09:20 Atenolol Oral [Active]; Rhodhiss Carbonate Oral [Active]; losartan oral [Active]; eh3 - PMHx: 09:20 Bipolar disorder; Compressed vertebrae; Diverticulitis; Hypertensive disorder; Left hb ventricular atrophy; Sleep Apnea; vitamin d deficiency; 09:20 Bipolar disorder; Compressed vertebrae; Diverticulitis; Hypertensive disorder; Left eh3 ventricular atrophy; Sleep Apnea; vitamin d deficiency; - Immunization history:: Adult Immunizations up to date. - Social history:: Smoking status: unknown. ROS: 09:23 Constitutional: Negative for fever, chills, and weight loss, Eyes: Negative for injury, snw pain, redness, and discharge, ENT: Negative for injury, pain, and discharge, Neck: Negative for injury, pain, and swelling, Cardiovascular: Negative for chest pain, palpitations, and edema, Respiratory: Negative for shortness of breath, cough, wheezing, and pleuritic chest pain, Abdomen/GI: Negative for abdominal pain, nausea, vomiting, diarrhea, and constipation, : Negative for injury, bleeding, discharge, and swelling, MS/Extremity: Negative for injury and deformity, Skin: Negative for injury, rash, and discoloration, Neuro: Negative for headache, weakness, numbness, tingling, and seizure, Psych: Negative for depression, anxiety, suicide ideation, homicidal ideation, and hallucinations. 09:23 Back: Positive for pain at rest, pain with movement, radiated pain, of the right low back and down right buttock. Exam: 09:18 Constitutional: This is a well developed, well nourished patient who is awake, alert, snw and in no acute distress. Head/Face: Normocephalic, atraumatic. Eyes: Pupils equal round and reactive to light, extra-ocular motions intact. Lids and lashes normal. Conjunctiva and sclera are non-icteric and not injected. Cornea within normal limits. Periorbital areas with no swelling, redness, or edema. ENT: Nares patent. No nasal discharge, no septal abnormalities noted. Tympanic membranes are normal and external auditory canals are clear. Oropharynx with no redness, swelling, or masses, exudates, or evidence of obstruction, uvula midline. Mucous membranes moist. Neck: Trachea midline, no thyromegaly or masses palpated, and no cervical lymphadenopathy. Supple, full range of motion without nuchal rigidity, or vertebral point tenderness. No Meningismus. Chest/axilla: Normal chest wall appearance and motion. Nontender with no deformity. No lesions are appreciated. Cardiovascular: Regular rate and rhythm with a normal S1 and S2. No gallops, murmurs, or rubs. Normal PMI, no JVD. No pulse deficits. Respiratory: Lungs have equal breath sounds bilaterally, clear to auscultation and percussion. No rales, rhonchi or wheezes noted. No increased work of breathing, no retractions or nasal flaring. Abdomen/GI: Soft, non-tender, with normal bowel sounds. No distension or tympany. No guarding or rebound. No evidence of tenderness throughout. Back: No spinal tenderness. No costovertebral tenderness. Full range of motion. Skin: Warm, dry with normal turgor. Normal color with no rashes, no lesions, and no evidence of cellulitis. MS/ Extremity: Pulses equal, no cyanosis. Neurovascular intact. Full, normal range of motion. Neuro: Awake and alert, GCS 15, oriented to person, place, time, and situation. Cranial nerves II-XII grossly intact. Motor strength 5/5 in all extremities. Sensory grossly intact. Cerebellar exam normal. Normal gait. Psych: Awake, alert, with orientation to person, place and time. Behavior, mood, and affect are within normal limits. 09:18 Neuro: Exam negative for acute changes. Vital Signs: 09:18 BP 132 / 82; Pulse 71; Resp 16; Temp 98.1; Pulse Ox 100% on R/A; Weight 166.47 kg; hb Height 5 ft. 10 in. ; Pain 7/10; 10:16 BP 123 / 80; Pulse 64; Resp 17; Pulse Ox 100% on R/A; eh3 09:18 Body Mass Index 52.66 (166.47 kg, 177.8 cm) hb 09:18 Pain Scale: Adult hb MDM: 09:28 Patient medically screened. snw 10:00 Differential diagnosis: arthritis, chronic back pain, Fracture Osteoporosis sprain, snw vertebral fracture. Data reviewed: vital signs, nurses notes. I considered the following discharge prescriptions or medication management in the emergency department Medications were administered in the Emergency Department. See MAR. Counseling: I had a detailed discussion with the patient and/or guardian regarding: the historical points, exam findings, and any diagnostic results supporting the discharge/admit diagnosis, the presence of at least one elevated blood pressure reading (>120/80) during this emergency department visit, radiology results, the need for outpatient follow up, for definitive care, a neurosurgeon. Special discussion: I have referred the patient to see his PCP for further evaluation of high blood pressure. Based on the history and exam findings, there is no indication for further emergent testing or inpatient evaluation. I discussed with the patient/guardian the need to see the back specialist for further evaluation of the symptoms. I discussed with the patient/guardian the need to see the primary care provider for further evaluation of the symptoms. 02/06 09:18 Order name: Lumbar Spine (3 Views) XRAY; Complete Time: 09:54 snw Administered Medications: 09:25 Drug: predniSONE PO 40 mg Route: PO; eh3 10:18 Follow up: Response: No adverse reaction 3 09:25 Drug: Famotidine PO 20 mg Route: PO; eh3 10:18 Follow up: Response: No adverse reaction eh3 Disposition: 09:17 PA/SALES RECRUITMENT SPECIALIST's history reviewed, patient interviewed, and examined. HPI: 37-year-old female ms3 presents for right lower back pain status post her right knee giving out and falling while at home this morning. My personal exam of patient reveals: On exam patient is alert and oriented x4, in no apparent distress, nontoxic-appearing, ambulatory in the emergency department. Heart rate and rhythm are regular without murmurs rubs or gallops. Lungs are clear to auscultation bilaterally. Abdomen is nontender to palpation with bowel sounds present. Patient spine is without vertebral tenderness, patient has mild right lower paraspinal muscle tenderness. 12:11 Co-signature as Attending Physician, Srinath Rose DO I reviewed the patient's care ms3 provided by Advanced Practice Provider \T\ agree w/ the diagnosis \T\ care plan. I personally saw the pt \T\ performed a substantive portion of the visit, incldng all aspects of the (History/Exam/Medical Decision Making). PA/SALES RECRUITMENT SPECIALIST's history reviewed, patient interviewed, and examined. I agree with assessment and care plan and confirm the diagnosis (es) above. Disposition Summary: 02/06/23 09:58 Discharge Ordered Location: Home snw Condition: Stable snw Diagnosis - Lumbago with sciatica, right side snw - Fall on same level, unspecified snw Followup: snw - With: Emergency Department - When: As needed - Reason: Worsening of condition Followup: snw - With: Private Physician - When: 2 - 3 days - Reason: Recheck today's complaints, Continuance of care, Re-evaluation by your physician Discharge Instructions: - Discharge Summary Sheet snw - Chronic Back Pain snw - Sciatica snw - Heat Therapy snw - Radicular Pain snw Forms: - Work release form snw - Medication Reconciliation Form snw - Thank You Letter snw - Antibiotic Education snw - Prescription Opioid Use snw - Patient Portal Instructions snw Prescriptions: - Prednisone 20 mg Oral Tablet - take 2 tablets by ORAL route once daily for 5 days; 10 tablet; Refills: 0, snw Product Selection Permitted - Pepcid 20 mg Oral Tablet - take 1 tablet by ORAL route once daily; 20 tablet; Refills: 0, Product snw Selection Permitted Signatures: Dispatcher [employer] EDMS Jany Mars, PHARMACY ANALYST-C PHARMACY ANALYST-Csnw Bess Ivory, RN RN hb Srinath Rose, DO ms3 Loren Lemon, RN RN eh3
--- NOTE | 2023-02-06 09:58 | ER ---
Nurse's Notes [facility] Name: Vibha Resendez Age: 37 yrs Sex: Female : 1985 Arrival Date: 02/06/2023 Time: 09:07 Bed 20 Private MD: Diagnosis: Lumbago with sciatica, right side;Fall on same level, unspecified Presentation: 02/06 09:18 Chief complaint: Right low back pain that radiates to right leg x 1 year, this morning hb pain was worse and when she attempted to get out of bed this morning she fell onto her butt due to the pain. Coronavirus screen: At this time, the client does not indicate any symptoms associated with coronavirus-19. Ebola Screen: No symptoms or risks identified at this time. Initial Sepsis Screen: Does the patient meet any 2 criteria? No. Patient's initial sepsis screen is negative. Does the patient have a suspected source of infection? No. Patient's initial sepsis screen is negative. Risk Assessment: Do you want to hurt yourself or someone else? Patient reports no desire to harm self or others. Onset of symptoms was February 06, 2023. 09:18 Method Of Arrival: Ambulatory hb 09:18 Acuity: HERIBERTO 4 hb Historical: - Allergies: 09:20 No Known Allergies; hb - Home Meds: 09:20 Atenolol Oral [Active]; [place] Carbonate Oral [Active]; losartan oral [Active]; eh3 - PMHx: 09:20 Bipolar disorder; Compressed vertebrae; Diverticulitis; Hypertensive disorder; Left hb ventricular atrophy; Sleep Apnea; vitamin d deficiency; 09:20 Bipolar disorder; Compressed vertebrae; Diverticulitis; Hypertensive disorder; Left eh3 ventricular atrophy; Sleep Apnea; vitamin d deficiency; - Immunization history:: Adult Immunizations up to date. - Social history:: Smoking status: unknown. Screenin:20 [facility] ED Fall Risk Assessment (Adult) Score/Fall Risk Level 0 - 2 = Low Risk. Abuse eh3 screen: Denies threats or abuse. Denies injuries from another. Nutritional screening: No deficits noted. Tuberculosis screening: No symptoms or risk factors identified. Assessment: 09:19 General: Appears in no apparent distress. uncomfortable, Behavior is calm, cooperative, eh3 appropriate for age. Pain: Complains of pain in lumbar area and sacrum. Neuro: Level of Consciousness is awake, alert, obeys commands, Oriented to person, place, time, situation. Cardiovascular: Capillary refill < 3 seconds Patient's skin is warm and dry. Respiratory: Airway is patent Respiratory effort is even, unlabored, Respiratory pattern is regular, symmetrical. GI: Abdomen is round non-distended. Derm: Skin is healthy with good turgor. Musculoskeletal: Circulation, motion, and sensation intact. 10:16 Reassessment: Patient appears in no apparent distress at this time. Patient and/or eh3 family updated on plan of care and expected duration. Pain level reassessed. Patient is alert, oriented x 3, equal unlabored respirations, skin warm/dry/pink. Vital Signs: 09:18 BP 132 / 82; Pulse 71; Resp 16; Temp 98.1; Pulse Ox 100% on R/A; Weight 166.47 kg; hb Height 5 ft. 10 in. ; Pain 7/10; 10:16 BP 123 / 80; Pulse 64; Resp 17; Pulse Ox 100% on R/A; eh3 09:18 Body Mass Index 52.66 (166.47 kg, 177.8 cm) hb 09:18 Pain Scale: Adult hb ED Course: 09:10 Patient arrived in ED. mg5 09:12 Jany Mars FNP-C is PHCP. snw 09:12 Srinath Rose DO is Attending Physician. snw 09:19 Loren Lemon, LORNE is Primary Nurse. eh3 09:20 Triage completed. hb 09:20 Arm band placed on. hb 09:20 Patient has correct armband on for positive identification. Bed in low position. Call eh3 light in reach. Pulse ox on. NIBP on. 09:43 Lumbar Spine (3 Views) XRAY In Process Unspecified. EDMS 10:16 Provided Education on: N/A. eh3 10:16 No provider procedures requiring assistance completed. Patient did not have IV access eh3 during this emergency room visit. Administered Medications: 09:25 Drug: predniSONE PO 40 mg Route: PO; eh3 10:18 Follow up: Response: No adverse reaction eh3 09:25 Drug: Famotidine PO 20 mg Route: PO; eh3 10:18 Follow up: Response: No adverse reaction eh3 Medication: 10:16 VIS not applicable for this client. eh3 Outcome: 09:58 Discharge ordered by MD. allen 10:16 Discharged to home ambulatory. 3 10:17 Condition: stable [facility] 10:17 Discharge instructions given to patient, Instructed on discharge instructions, follow up and referral plans. medication usage, Demonstrated understanding of instructions, follow-up care, medications, Prescriptions given X 2. 10:28 Patient left the ED. 3 Signatures: Dispatcher [employer] EDMS Jany Mars, BLAKE-C RETAIL CLERK-Csnw Bess Ivory, LORNE RN Loren Lemon RN RN 3 Yumiko Wagoner 5
[2023-02-06 10:33] VITALS: TEMP 98.1; O2SAT 100
[2023-02-06 10:34] VITALS: BP 123/80
== END 2023-02-06 10:28 | disposition home or self-care (01) ==
LOC: ER 09:07
DX: M54.41 Lumbago with sciatica, right side (principal); W18.30XA Fall on same level, unspecified, initial encounter
CPT/HCPCS: 72100; 99283; J7512

== ENCOUNTER 2023-06-26 08:10 | Emergency (ER) | payer BC ==
--- OUTSIDE RECORDS SUMMARY | 2023-06-26 08:13 | XMS REPORT | Continuity of Care Document ---
Author Name Unknown Address [address] [place] [address] [facility] thconnect Address 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 Role Phone Pcp, Patient Does Not Have A Primary Care Physic bakari ELAN OCHOA Attending Clinician UnaJANIA Collier Attending Clinician Unavailable RADIOLOGY Attending Clinician Unavailable Radiology Attending Clinician Unavailable Karli NUGENT Attending Clinician Unavailable Karli Glover Attending Clinician Doctor Unassigned, [place] Attending Clinician PATY Solitario Admitting Clinician Unavailable Payers Payer Name Policy Type Policy Number Effective Date Expirati on Date Source BCBS 2 [id number] 2022 00:00:00 [facility] [id number] 2022 00:00:00 Problems Condition Name Condition Details Condition Category Status Onset Date Resolution Date Last Treatment Date Treating Clinician Comments Source QUENTIN on CPAP QUENTIN on CPAP Disease Active 2016-07 00:00: 00 [facility] B12 deficiency B12 deficiency Disease Active 02-14 00:00: 00 [facility] Positive ZULEYMA (antinucle ar antibody) Positive ZULEYMA (antinucle ar antibody) Disease Active 02-05 00:00: 00 [facility] Iron deficiency anemia Iron deficiency anemia Disease Active 02-05 00:00: 00 [facility] Contracept aleisha management Contracept aleisha management Disease Active 10-04 00:00: 00 [facility] Anxiety disorder Anxiety disorder Disease Active 10-04 00:00: 00 [facility] Bipolar affective disorder, current episode manic without psychotic symptoms Bipolar affective disorder, current episode manic without psychotic symptoms Disease Active 10-04 00:00: 00 [facility] Well woman exam Well woman exam Disease Active 07-31 00:00: 00 Overview: Formattin g of this note might be different from the original. 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 Utility [facility] Seizure disorder Seizure disorder Disease Active 07-31 00:00: 00 [facility] Essential hypertensi on, benign Essential hypertensi on, benign Disease Active 07-31 00:00: 00 [facility] Tobacco use disorder Tobacco use disorder Disease Active 2012-07 00:00: 00 [facility] Morbid obesity Morbid obesity Disease Active 2012-07 00:00: 00 [facility] Allergies, Adverse Reactions, Alerts Allergy Name Allergy Type Status Severity Reaction(s) Onset Date Inactive Date Treating Clinician Comments Source NO KNOWN ALLERGIE S Drug Class Active [facility] Social History Social Habit Start Date Stop Date Quantity Comments Source History SDOH Alcohol Frequency [facility] History SDOH Alcohol Std Drinks [facility] History SDOH Alcohol Binge [facility] of tobacco use Cigarette Smoker Kecia walker - External Alcohol intake 2022-08-27 00:00:00 2022-08-27 00:00:00 .86 /d Kecia Richter - External History of Social function 2022-05-02 00:00:00 2022-05-02 00:00:00 [facility] Cigarettes smoked current (pack per day) - Reported 2016-11-10 00:00:2016-11-10 00:00:00 [facility] Cigarette pack-years 2016-11-10 00:00:00 2016-11-10 00:00:00 [facility] Tobacco use and exposure 2016-11-10 00:00:00 2016-11-10 00:00:00 Smokeless tobacco non-user [facility] Alcohol Comment 2012-12-07 00:00:00 2012-12-07 00:00:00 every other weekend [facility] Sex Ass[birth year] At 1985 00:00:00 1985 00:00:00 F Kecia Ayala Smoking Status Start Date Stop Date Source Smokes tobacco daily 2022-08-27 00:00:00 Kecia Ayala Medications Ordered Medication Name Filled Medication Name Start Date Stop Date Current Medication? Ordering Clinician Indication Dosage Frequency Signature (SIG) Comments Components Source Amlodipine Besylate 10 MG oral Tablet 08-27 11:03: 39 Yes 10mg Take 10 mg by mouth daily Kecia bartlett Atenolol (TENORMIN) 50 MG oral Tablet 08-27 11:03: 39 Yes 50mg Take 50 mg by mouth daily Kecia bartlett Losartan Potassium-H CTZ 100-25 MG oral Tablet 08-27 11:03: 39 Yes 1{tbl} Take 1 tablet by mouth daily Kecia bartlett buPROPion HCl 75 MG oral Tablet 2021-07 00:00: 00 08-27 00:00 :00 No 1{tbl} Take 1 tablet by mouth every morning Kecia bartlett [place] Carbonate 300 MG oral Capsule 2021-07 00:00: 00 08-27 00:00 :00 No 1{capsu le} Take 1 capsule by mouth 2 times daily Kecia bartlett Olanzapine (ZYPREXA) 5 MG oral tablet 2021-07 00:00: 00 08-27 00:00 :00 No 1{tbl} Take 1 tablet by mouth at bedtime Kecia bartlett ketorolac (TORADOL) injection 30 mg 2021-07 0-18 16:15: 00 04-29 15:23 :00 No 30mg 30 mg, Intramuscu lar, ONCE, 1 dose, On Thu04/29/22 at 1115, P[facility] vitamin B-12 (VITAMIN B-12) 500 mcg tablet 02-27 00:00: 00 Yes 500ug Take 1 tablet by mouth daily. [facility] vitamin B-12 (VITAMIN B-12) 500 mcg tablet 02-27 00:00: 00 Yes 500ug Take 1 tablet by mouth daily. [facility] vitamin B-12 (VITAMIN B-12) 500 mcg tablet 02-27 00:00: 00 Yes 500ug Take 1 tablet by mouth daily. [facility] vitamin B-12 (VITAMIN B-12) 500 mcg tablet 02-27 00:00: 00 Yes 500ug Take 1 tablet by mouth daily. [facility] vitamin B-12 (VITAMIN B-12) 500 mcg tablet 02-27 00:00: 00 Yes 500ug Take 1 tablet by mouth daily. [facility] valsartan-h ydrochlorot hiazide 160-25 mg per tablet 01-29 00:00: 00 Yes [id number] 1{tbl} Take 1 tablet by mouth daily. [facility] valsartan-h ydrochlorot hiazide 160-25 mg per tablet 01-29 00:00: 00 Yes [id number] 1{tbl} Take 1 tablet by mouth daily. [facility] valsartan-h ydrochlorot hiazide 160-25 mg per tablet 01-29 00:00: 00 Yes [id number] 1{tbl} Take 1 tablet by mouth daily. [facility] valsartan-h ydrochlorot hiazide 160-25 mg per tablet 01-29 00:00: 00 Yes [id number] 1{tbl} Take 1 tablet by mouth daily. [facility] valsartan-h ydrochlorot hiazide 160-25 mg per tablet 01-29 00:00: 00 Yes [id number] 1{tbl} Take 1 tablet by mouth daily. [facility] risperiDONE 2 mg tablet 01-01 00:00: 00 Yes [facility] risperiDONE 2 mg tablet 01-01 00:00: 00 Yes [facility] risperiDONE 2 mg tablet 01-01 00:00: 00 Yes [facility] risperiDONE 2 mg tablet 01-01 00:00: 00 Yes [facility] risperiDONE 2 mg tablet 01-01 00:00: 00 Yes [facility] norgestimat e-ethinyl estradiol 0.18/0.215/ 0.25 mg-35 mcg (28) tablet 11-12 00:00: 00 Yes [id number] 1{tbl} Take 1 tablet by mouth daily. [facility] norgestimat e-ethinyl estradiol 0.18/0.215/ 0.25 mg-35 mcg (28) tablet 11-12 00:00: 00 Yes [id number] 1{tbl} Take 1 tablet by mouth daily. [facility] norgestimat e-ethinyl estradiol 0.18/0.215/ 0.25 mg-35 mcg (28) tablet 11-12 00:00: 00 Yes [id number] 1{tbl} Take 1 tablet by mouth daily. [facility] norgestimat e-ethinyl estradiol 0.18/0.215/ 0.25 mg-35 mcg (28) tablet 11-12 00:00: 00 Yes [id number] 1{tbl} Take 1 tablet by mouth daily. [facility] norgestimat e-ethinyl estradiol 0.18/0.215/ 0.25 mg-35 mcg (28) tablet 11-12 00:00: 00 Yes [id number] 1{tbl} Take 1 tablet by mouth daily. [facility] gabapentin 600 mg tablet 09-10 00:00: 00 Yes [facility] gabapentin 600 mg tablet 09-10 00:00: 00 Yes [facility] gabapentin 600 mg tablet 09-10 00:00: 00 Yes [facility] gabapentin 600 mg tablet 09-10 00:00: 00 Yes [facility] gabapentin 600 mg tablet 09-10 00:00: 00 Yes [facility] amitriptyli ne 25 mg tablet 08-27 00:00: [address] [facility] amitriptyli ne 25 mg tablet 08-27 00:00: [address] [facility] amitriptyli ne 25 mg tablet 08-27 00:00: [address] [facility] amitriptyli ne 25 mg tablet 08-27 00:00: 00 Yes [facility] amitriptyli ne 25 mg tablet 08-27 00:00: 00 Yes [facility] Immunizations Ordered Immunization Name Filled Immunization Name Date Status Comments Source TDAP 2012-06-23 00:00:00 Completed [facility] TDAP 2012-06-23 00:00:00 Completed [facility] TDAP 2012-06-23 00:00:00 Completed [facility] TDAP 2012-06-23 00:00:00 Completed [facility] Tdap- (Boostrix, Adacel) 2012-06-23 00:00:00 Completed Kecia Jimenezold - External Rubella 2011-05-14 00:00:00 Completed [facility] Rubella 2011-05-14 00:00:00 Completed [facility] Rubella 2011-05-14 00:00:00 Completed [facility] Rubella 2011-05-14 00:00:00 Completed [facility] Rubella 2011-05-14 00:00:00 Completed Kecia Richter - External TDAP Unknown Completed [facility] Rubella Unknown Completed [facility] Vital Signs Vital Name Observation Time Observation Value Comments S ource Systolic blood pressure 2022-08-27 16:55:00 126 mm[Hg] Kecia Seybo ld - External Diastolic blood pressure 2022-08-27 16:55:00 84 mm[Hg] Kecia Seybo ld - External Heart rate 2022-08-27 16:55:00 88 /min Rusty y Seybaaron - External Body temperature 2022-08-27 16:55:00 36.56 Nichol Kecia Seybold - External Respiratory rate 2022-08-27 16:55:00 15 /min Kecia Seybold - External Body height 2022-08-27 16:55:00 177.8 cm Елена ey Seybold - External Body weight 2022-08-27 16:55:00 169.645 kg Елена ey Seybold - External BMI 2022-08-27 16:55:00 53.66 kg/m2 Елена ey Seybold - External Systolic blood pressure 2022-04-29 14:10:00 163 mm[Hg] [facility] Diastolic blood pressure 2022-04-29 14:10:00 102 mm[Hg] [facility] Heart rate 2022-04-29 14:10:00 82 /min [facility] Body temperature 2022-04-29 14:10:00 37.5 Nichol [facility] Respiratory rate 2022-04-29 14:10:00 18 /min [facility] Body weight 2022-04-29 14:10:00 171.233 kg [facility] BMI 2022-04-29 14:10:00 52.65 kg/m2 [facility] Oxygen saturation in Arterial blood by Pulse oximetry 2022-04-29 14:10:00 100 /min [facility] Procedures Procedure Date / Time Performed Performing Clinicia n Source NOTICE OF PRIVACY PRACTICES 2022-04-29 14:05:26 Doctor Unassigned, [place] [facility] CONSENT/REFUSAL FOR DIAGNOSIS AND TREATMENT 2022-04-29 14:03:53 Doctor Unassigned, [place] [facility] Encounters Start Date/Time End Date/Time Encounter Type Admission Type Attending Clinicians Care Facility Care Department Encounter ID Source 2023-05-29 00:00:00 2023-05-29 00:00:00 Outpatient ELAN OCHOA [id number] Kecia Richter 2022-11-06 00:00:00 2022-11-06 00:00:00 Outpatient ELAN OCHOA [id number] Kecia Seybold 2022-11-04 00:00:00 2022-11-04 00:00:00 Outpatient JANIA HUIZAR KECIA MAHONEY [id number] Kecia Seybold 2022-09-30 00:00:00 2022-09-30 00:00:00 Outpatient ELAN OCHOA KECIA MAHONEY [id number] Kecia Seybold 2022-09-29 00:00:00 2022-09-29 00:00:00 Outpatient ELAN OCHOA KECIA MAHONEY [id number] Kecia Seybold 2022-09-29 00:00:00 2022-09-29 00:00:00 Outpatient DONBONNIEGILDA MAHONEY [id number] [facility] 2022-09-24 10:30:00 2022-09-24 10:30:00 Outpatient CHOCOJyothi JANIA [facility]IA [facility]HONEY [id number] [facility] 2022-09-17 00:00:00 2022-09-17 00:00:00 Outpatient ELAN OCHOA KECIA MAHONEY [id number] Kecia Seybold 2022-09-11 15:00:00 2022-09-11 15:00:00 Outpatient KECIA MAHONEY [id number] Kecia Seybold 2022-09-11 13:40:00 2022-09-11 13:40:00 Outpatient [facility]HONEY [id number] [facility] 2022-09-09 00:00:00 2022-09-09 00:00:00 Outpatient DONBONNIEGILDA MAHONEY [id number] Kecia Seybold 2022-08-27 10:15:00 2022-08-27 10:15:00 Outpatient DON ELAN MAHONEY [id number] Kecia Seybold 2022-07-01 11:00:00 2022-07-01 11:00:00 Outpatient DON ELAN MAHONEY [id number] Kecia Seybold 2022-06-10 12:14:52 2022-06-10 23:59:00 Outpatient R RADIOLOGY [facility] [id number] [facility] 2022-06-10 12:14:52 2022-06-10 23:59:00 Hospital Encounter Radiology [facility] [id number] [facility] 2022-04-29 11:46:50 2022-04-29 23:59:00 Outpatient R RADIOLOGY [facility] [id number] [facility] 2022-04-29 11:45:00 2022-04-29 23:59:00 Hospital Encounter Radiology [facility] [id number] [facility] 2022-04-29 09:13:00 2022-04-29 10:49:00 Emergency X Karli NUGENT [facility] ERT [id number] [facility] 2022-04-29 09:13:00 2022-04-29 10:49:00 Emergency Karli Nugent Yessica [facility] [id number] [facility] 2022-04-29 00:00:00 2022-04-29 00:00:00 Orders Only Doctor Unassigned, [place] [facility] [id number] [facility] 2022-04-29 00:00:00 2022-04-29 00:00:00 Patient Secure Msg Doctor Unassigned, [place] [facility] [id number] [facility]
[2023-06-26 08:59] LABS: Absolute Lymphocytes (CBC) 2.3 K/uL (0.7-4.9); Hematocrit 34.7 % (36.0-45.0); Lymphocytes % 35.2 % (15.3-44.8); MCV 95.5 fL (80-100); MPV 9.1 fL (7.6-11.3); Platelets 290 thou/uL (152-406); RBC Red Blood Cell Count 3.63 M/uL (3.86-4.86)
--- NOTE | 2023-06-26 09:35 | RAD REPORT ---
EXAM DESCRIPTION: RAD - Chest Single View - 06/26/2023 9:29 am CLINICAL HISTORY: DYSPNEA Chest pain. COMPARISON: Chest Single View dated 01/19/2023; Chest Pa And Lat (2 Views) dated 06/07/2018 FINDINGS: Portable technique limits examination quality. The lungs are grossly clear. The heart is normal in size. No displaced fractures.Mild dextroscoliosis . IMPRESSION: No acute intrathoracic process suspected.
[2023-06-26 10:26] LABS: ALT/SGPT 23 U/L (13-56); AST/SGOT 15 U/L (15-37); Albumin 3.5 g/dL (3.4-5.0); Alkaline Phosphatase 69 U/L (45-117); BUN Blood Urea Nitrogen 15 mg/dL (7-18); Bicarbonate 26 mEq/L (21-32); Bilirubin Total 0.2 mg/dL (0.2-1.0); Glomerular Filtration Rate 100 ml/min (=/>90); Glucose Level 101 mg/dL (74-106); Magnesium 1.8 mg/dL (1.6-2.4); Potassium 3.5 mEq/L (3.5-5.1); Protein, Total 7.1 g/dL (6.4-8.2); Sodium Level 138 mEq/L (136-145); Troponin High Sensitivity 3.6 pg/mL (<58.9)
[2023-06-26 10:39] LABS: Bilirubin Direct < 0.1 mg/dL (0-0.2); Bilirubin Indirect, Calculated ND mg/dL (0.2-0.8)
--- NOTE | 2023-06-26 11:43 | EDPHYS ---
Physician Documentation [facility] Name: Vibha Resendez Age: 38 yrs Sex: Female : 1985 Arrival Date: 06/26/2023 Time: 08:10 Bed 18 Private MD: ED Physician Hiram Ortega HPI: 06/26 14:25 This 38 yrs old Black Female presents to ER via Ambulatory with complaints of Breathing rt Difficulty, Weakness. 14:25 Patient presents to the ED with a mild generalized weakness, lightheadedness and rt shortness of breath. She denies any respiratory symptoms. She states this is similar to when she gets a URI, pneumonia or bronchitis. Denies other acute complaints at this time, symptoms are mild in severity, no other aggravating alleviating factors.. 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 - Social history:: Smoking status: Patient reports the use of cigarette tobacco products. - Family history:: not pertinent. ROS: 14:25 Constitutional: Negative for fever, chills, and weight loss, Cardiovascular: Negative rt for chest pain, palpitations, and edema, Respiratory: Negative for shortness of breath, cough, wheezing, and pleuritic chest pain, Abdomen/GI: Negative for abdominal pain, nausea, vomiting, diarrhea, and constipation, MS/Extremity: Negative for injury and deformity, Skin: Negative for injury, rash, and discoloration, Psych: Negative for depression, anxiety, suicide ideation, homicidal ideation, and hallucinations, 14:25 Neuro: Positive for dizziness, weakness, Exam: 14:25 Constitutional: This is a well developed, well nourished patient who is awake, alert, rt and in no acute distress. Head/Face: Normocephalic, atraumatic. Chest/axilla: Normal chest wall appearance and motion. Nontender with no deformity. No lesions are appreciated. Cardiovascular: Regular rate and rhythm with a normal S1 and S2. No gallops, murmurs, or rubs. Normal PMI, no JVD. No pulse deficits. Respiratory: Lungs have equal breath sounds bilaterally, clear to auscultation and percussion. No rales, rhonchi or wheezes noted. No increased work of breathing, no retractions or nasal flaring. Abdomen/GI: Soft, non-tender, with normal bowel sounds. No distension or tympany. No guarding or rebound. No evidence of tenderness throughout. Skin: Warm, dry with normal turgor. Normal color with no rashes, no lesions, and no evidence of cellulitis. MS/ Extremity: Pulses equal, no cyanosis. Neurovascular intact. Full, normal range of motion. Neuro: Awake and alert, GCS 15, oriented to person, place, time, and situation. Cranial nerves II-XII grossly intact. Motor strength 5/5 in all extremities. Sensory grossly intact. Cerebellar exam normal. Normal gait. Psych: Awake, alert, with orientation to person, place and time. Behavior, mood, and affect are within normal limits. 14:25 ECG was reviewed by the Attending Physician. Vital Signs: 08:27 BP 134 / 90; Pulse 70; Resp 18 S; Temp 98.8(O); Pulse Ox 100% on R/A; Weight 167.83 kg aa5 (R); Height 5 ft. 11 in. (R); 11:44 BP 134 / 87; Pulse 74; Resp 18; Pulse Ox 100% on R/A; mb9 08:27 Body Mass Index 51.60 (167.83 kg, 180.34 cm) aa5 MDM: 08:34 Patient medically screened. rt 14:29 Differential diagnosis: Viral syndrome, pneumonia, acute bronchitis, flu. Data rt reviewed: vital signs, nurses notes, lab test result(s), EKG, radiologic studies. Independent interpretation of the following test(s) in the Emergency Department X-Ray: My interpretation is No pneumonia seen on interpretation of x-ray images. Test considered but Not performed: CT: Low suspicion for PE, CT angiogram not indicated. Care significantly affected by the following chronic conditions: Hypertension. Counseling: I had a detailed discussion with the patient and/or guardian regarding the historical points, exam findings, and any diagnostic results supporting the discharge/admit diagnosis, lab results, radiology results, the need for outpatient follow up, to return to the emergency department if symptoms worsen or persist or if there are any questions or concerns that arise at home. 06/26 08:38 Order name: Basic Metabolic Panel; Complete Time: 10:48 rt 06/26 08:38 Order name: CBC with Diff; Complete Time: 09:37 rt 06/26 08:38 Order name: LFT's; Complete Time: 10:48 rt 06/26 08:38 Order name: Magnesium; Complete Time: 10:48 rt 06/26 08:38 Order name: Troponin HS; Complete Time: 10:48 rt 06/26 08:38 Order name: XRAY Chest (1 view); Complete Time: 09:37 rt 06/26 08:38 Order name: EKG; Complete Time: 08:39 rt 06/26 08:38 Order name: Cardiac monitoring; Complete Time: 11:38 rt 06/26 08:38 Order name: EKG - Nurse/Tech; Complete Time: 08:59 rt 06/26 08:38 Order name: IV Saline Lock; Complete Time: 08:49 rt 06/26 08:38 Order name: Labs collected and sent; Complete Time: 08:49 rt 06/26 08:38 Order name: O2 Per Protocol; Complete Time: 11:38 rt 06/26 08:38 Order name: O2 Sat Monitoring; Complete Time: 11:38 rt 06/26 09:11 Order name: Labs - recollect needed: recollect light green hemolyzed; Complete Time: eb 09:59 EC:25 Rate is 67 beats/min. Rhythm is regular, Normal Sinus Rhythm with No ectopy. QRS [place] rt is Normal. NV interval is normal. QRS interval is normal. QT interval is normal. No Q waves. T waves are Normal. No ST changes noted. Interpreted by me. Administered Medications: No medications were administered Disposition Summary: 06/26/23 11:42 Discharge Ordered Notes: Location: Home rt Problem: new rt Symptoms: have improved rt Condition: Stable rt Diagnosis - Weakness rt Followup: rt - With: Private Physician - When: 2 - 3 days - Reason: Discharge Instructions: - Discharge Summary Sheet rt - Weakness rt Forms: - Work release form mb9 - Medication Reconciliation Form rt - Thank You Letter rt - Antibiotic Education rt - Prescription Opioid Use rt - Patient Portal Instructions rt - Leadership Thank You Letter rt Signatures: Dispatcher [employer] Yennifer Mercado RN RN aa5 Yissel Berger Ryan, MD MD rt Corrections: (The following items were deleted from the chart) 08:27 08:27 Allergies: No Known Allergies; jennifer aa5
--- NOTE | 2023-06-26 11:43 | ER ---
Nurse's Notes [facility] Name: Vibha Resendez Age: 38 yrs Sex: Female : 1985 Arrival Date: 06/26/2023 Time: 08:10 Bed 18 Private MD: Diagnosis: Weakness Presentation: 06/26 08:27 Chief complaint: Patient states: "I was at work and I started feeling lightheaded and aa5 short of breath". Pt states "every year I get Pneumonia or bronchitis around this time so I am not sure what is going on". Pt denies any respiratory symptoms. 08:27 Coronavirus screen: shortness of breath. Ebola Screen: Patient denies travel to an [place] [employer] Ebola-affected area in the 21 days before illness onset. Initial Sepsis Screen: Does the patient meet any 2 criteria? No. Patient's initial sepsis screen is negative. Does the patient have a suspected source of infection? No. Patient's initial sepsis screen is negative. Risk Assessment: Do you want to hurt yourself or someone else? Patient reports no desire to harm self or others. Onset of symptoms was June 2023. 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 - Social history:: Smoking status: Patient reports the use of cigarette tobacco products. - Family history:: not pertinent. Screenin:38 [facility] ED Fall Risk Assessment (Adult) History of falling in the last 3 months, mb9 including since admission No falls in past 3 months (0 pts) Confusion or Disorientation No (0 pts) Intoxicated or Sedated No (0 pts) Impaired Gait No (0 pts) Mobility Assist Device Used No (0 pt) Altered Elimination No (0 pt) Score/Fall Risk Level 0 - 2 = Low Risk Oriented to surroundings, Maintained a safe environment, Educated pt \\T\\ family on fall prevention, incl call for assistance when getting out of bed. Abuse screen: Denies threats or abuse. Nutritional screening: No deficits noted. Tuberculosis screening: No symptoms or risk factors identified. Assessment: 11:37 Reassessment: Pt brought back to ER room. mb9 11:42 General: Appears in no apparent distress. Behavior is calm, cooperative, appropriate mb9 for age. Pain: Denies pain. Neuro: Sommers Agitation-Sedation Scale (RASS): 0 - Alert and Calm Level of Consciousness is awake, alert, obeys commands, Oriented to person, place, time, situation, Appropriate for age. Cardiovascular: Denies chest pain, Heart tones S1 S2 present Patient's skin is warm and dry. Respiratory: Reports shortness of breath Airway is patent Respiratory effort is even, unlabored, Respiratory pattern is regular, symmetrical, Breath sounds are clear bilaterally. GI: Abdomen is round non-distended, Bowel sounds present X 4 quads. Abd is soft and non tender X 4 quads. : No signs and/or symptoms were reported regarding the genitourinary system. EENT: No signs and/or symptoms were reported regarding the EENT system. Derm: Skin is pink, warm \\T\\ dry. Musculoskeletal: Range of motion: intact in all extremities. Vital Signs: 08:27 BP 134 / 90; Pulse 70; Resp 18 S; Temp 98.8(O); Pulse Ox 100% on R/A; Weight 167.83 kg aa5 (R); Height 5 ft. 11 in. (R); 11:44 BP 134 / 87; Pulse 74; Resp 18; Pulse Ox 100% on R/A; mb9 08:27 Body Mass Index 51.60 (167.83 kg, 180.34 cm) aa5 ED Course: 08:11 Patient arrived in ED. rg4 08:27 Arm band placed on. aa5 08:31 Triage completed. aa5 08:34 Hiram Ortega MD is Attending Physician. rt 08:50 Basic Metabolic Panel Sent. bc6 08:50 CBC with Diff Sent. bc6 08:50 LFT's Sent. bc6 08:50 Magnesium Sent. bc6 08:50 Troponin HS Sent. bc6 08:50 Inserted saline lock: 20 gauge in right antecubital area, using aseptic technique. bc6 Blood collected. 08:57 EKG done, by ED staff. aw1 09:31 XRAY Chest (1 view) In Process Unspecified. EDMS 11:37 Callie Lucia, RN is Primary Nurse. mb9 11:38 Placed in gown. Bed in low position. Call light in reach. Side rails up X 1. Client mb9 placed on continuous cardiac and pulse oximetry monitoring. NIBP monitoring applied. 11:44 No provider procedures requiring assistance completed. IV discontinued, intact, mb9 bleeding controlled, No redness/swelling at site. Pressure dressing applied. Administered Medications: No medications were administered Medication: :44 VIS not applicable for this client. mb9 Outcome: 11:42 Discharge ordered by MD. rt 11:51 Discharged to home ambulatory, mb9 11:51 Condition: stable 11:51 Discharge instructions given to patient, Instructed on discharge instructions, follow up and referral plans. Demonstrated understanding of instructions, follow-up care, 11:51 Patient left the ED. mb9 Signatures: Dispatcher [employer] EDUT Yennifer Pacheco RN RN [email or web address] Jeannette Harley rg4 Callie Lucia, RN RN mb9 Hiram Ortega MD MD rt Radha Howard bc6 Joanie Woods aw1 Corrections: (The following items were deleted from the chart) 08:27 08:27 Allergies: No Known Allergies; aa5 aa5 08:32 08:27 BP 134 / 90; Pulse 70bpm; Resp 18bpm; Spontaneous; Pulse Ox 100% RA; Temp 98.8F aa5 Oral; aa5
[2023-06-26 12:37] VITALS: TEMP 98.8; O2SAT 100
[2023-06-26 12:40] VITALS: BP 134/87
--- NOTE | 2023-06-29 12:34 | EKG ---
Test Date: 2023-06-26 Test Time: 08:56:08 [employer]: ESTELA MEASUREMENT RESULTS: Intervals: Rate: 67 CO: 152 QRSD: 86 QT: 404 QTc: 426 Mason: P: 51 CO: 152 QRS: 33 T: 8 INTERPRETIVE STATEMENTS: Normal sinus rhythm Low voltage QRS Borderline ECG Compared to ECG 01/19/2023 10:24:00 No significant changes Electronically Signed On 06-29-23 12:27:56 TELECOM SPECIALIST by Miguel Jones
== END 2023-06-26 11:51 | disposition home or self-care (01) ==
LOC: ER 08:10
DX: R53.1 Weakness (principal); R42 Dizziness and giddiness; I10 Essential (primary) hypertension; Z72.0 Tobacco use; Z88.8 Allergy status to other drugs, medicaments and biological substances
CPT/HCPCS: 36415; 71045; 80048; 80076; 83735; 84484; 85025; 93005; 99284

== ENCOUNTER → 2023-08-19 | Emergency (ER) | payer BC ==
[~2023-08-19] MED LIST: DIPHENHYDRAMINE 25 MG TAB/CAP ONE; FAMOTIDINE 20 MG TAB ONE
--- OUTSIDE RECORDS SUMMARY | 2023-08-19 13:00 | XMS REPORT | Continuity of Care Document ---
Author Name Unknown Address [address] [place] [address] [facility] thconnect Address [address] [place] [address] Care Team Providers Care Customer Service Receptionist Name Role Phone Pcp, Patient Does Not Have A Primary Care Physic bakari MD LORIE Attending Clinician Unavailab ELAN Vides Attending Clinician UnaJANIA Collier Attending Clinician Unavailable RADIOLOGY Attending Clinician Unavailable Radiology Attending Clinician Unavailable Karli NUGENT Attending Clinician Unavailable Karli Glover Attending Clinician Doctor Unassigned, Bowring Attending Clinician U PATY Braxton Admitting Clinician Unavailable Payers Payer Name Policy Type Policy Number Effective Date Expirati on Date Source BCBS 2 [id number] 2022 00:00:[address] [facility] - OUT OF STATE [id number] 2022 00:00:00 Problems Condition Name Condition Details Condition Category Status Onset Date Resolution Date Last Treatment Date Treating Clinician Comments Source QUENTIN on CPAP QUENTIN on CPAP Disease Active 2016-07 00:00: 00 [facility] B12 deficiency B12 deficiency Disease Active 02-14 00:00: 00 [facility] Positive ZULEYMA (antinucle ar antibody) Positive ZULEYMA (antinucle ar antibody) Disease Active 02-05 00:00: 00 [facility] Iron deficiency anemia Iron deficiency anemia Disease Active 02-05 00:00: 00 [facility] Contracept aleisha management Contracept aleisha management Disease Active 10-04 00:00: 00 [facility] Anxiety disorder Anxiety disorder Disease Active 10-04 00:00: 00 [facility] Bipolar affective disorder, current episode manic without psychotic symptoms Bipolar affective disorder, current episode manic without psychotic symptoms Disease Active 10-04 00:00: 00 [facility] Well woman exam Well woman exam Disease Active 07-31 00:00: 00 Overview: Formattin g of this note might be different from the original. 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 Seizure disorder Seizure disorder Disease Active 07-31 00:00: 00 [facility] Essential hypertensi on, benign Essential hypertensi on, benign Disease Active 07-31 00:00: 00 [facility] Tobacco use disorder Tobacco use disorder Disease Active 2012-07 00:00: 00 [facility] Morbid obesity Morbid obesity Disease Active 2012-07 00:00: 00 [facility] Allergies, Adverse Reactions, Alerts Allergy Name Allergy Type Status Severity Reaction(s) Onset Date Inactive Date Treating Clinician Comments Source NO KNOWN ALLERGIE S Drug Class Active [facility] Social History Social Habit Start Date Stop Date Quantity Comments Source History SDOH Alcohol Frequency [facility] History SDOH Alcohol Std Drinks [facility] History SDOH Alcohol Binge [facility] tobacco use Cigarette Smoker Kecia walker - External Alcohol intake 2022-08-27 00:00:00 2022-08-27 00:00:00 .86 /d Kecia Richter - External History of Social function 2022-05-02 00:00:00 2022-05-02 00:00:00 [facility] Cigarettes smoked current (pack per day) - Reported 2016-11-10 00:00:00 2016-11-10 00:00:00 [facility] Cigarette pack-years 2016-11-10 00:00:00 2016-11-10 00:00:00 [facility] Tobacco use and exposure 2016-11-10 00:00:00 2016-11-10 00:00:00 Smokeless tobacco non-user [facility] Alcohol Comment 2012-12-07 00:00:00 2012-12-07 00:00:00 every other weekend [facility] Sex Ass[birth year] At 1985 00:00:00 1985 [...] tablet by mouth every morning Kecia bartlett Avant Carbonate 300 MG oral Capsule 2021-07 00:00: 00 08-27 00:00 :00 No 1{capsu le} Take 1 capsule by mouth 2 times daily Kecia bartlett Olanzapine (ZYPREXA) 5 MG oral tablet 2021-07 00:00: 00 08-27 00:00 :00 No 1{tbl} Take 1 tablet by mouth at bedtime Kecia Seybold - Externa l ketorolac (TORADOL) injection 30 mg 2021-07 16:15: 00 04-29 15:23 :00 No 30mg 30 mg, Intramuscu lar, ONCE, 1 dose, On Thu04/29/22 at 1115, [address] [facility] vitamin B-12 (VITAMIN B-12) 500 mcg tablet 02-27 00:00: 00 Yes 500ug Take 1 tablet by mouth daily. [facility] vitamin B-12 (VITAMIN B-12) 500 mcg tablet 02-27 00:00: 00 Yes 500ug Take 1 tablet by mouth daily. [facility] vitamin B-12 (VITAMIN B-12) 500 mcg tablet 02-27 00:00: 00 Yes 500ug Take 1 tablet by mouth daily. [facility] vitamin B-12 (VITAMIN B-12) 500 mcg tablet 02-27 00:00: 00 Yes 500ug Take 1 tablet by mouth daily. [facility] vitamin B-12 (VITAMIN B-12) 500 mcg tablet 02-27 00:00: 00 Yes 500ug Take 1 tablet by mouth daily. [facility] valsartan-h ydrochlorot hiazide 160-25 mg per tablet 01-29 00:00: 00 Yes [id number] 1{tbl} Take 1 tablet by mouth daily. [facility] valsartan-h ydrochlorot hiazide 160-25 mg per tablet 01-29 00:00: 00 Yes [id number] 1{tbl} Take 1 tablet by mouth daily. [facility] valsartan-h ydrochlorot hiazide 160-25 mg per tablet 01-29 00:00: 00 Yes [id number] 1{tbl} Take 1 tablet by mouth daily. [facility] valsartan-h ydrochlorot hiazide 160-25 mg per tablet 01-29 00:00: 00 Yes [id number] 1{tbl} Take 1 tablet by mouth daily. [facility] valsartan-h ydrochlorot hiazide 160-25 mg per tablet 01-29 00:00: 00 Yes [id number] 1{tbl} Take 1 tablet by mouth daily. [facility] risperiDONE 2 mg tablet 01-01 00:00: [address] [facility] risperiDONE 2 mg tablet 01-01 00:00: [address] [facility] risperiDONE 2 mg tablet 01-01 00:00: [address] [facility] risperiDONE 2 mg tablet 01-01 00:00: [address] [facility] risperiDONE 2 mg tablet 01-01 00:00: [address] [facility] norgestimat e-ethinyl estradiol 0.18/0.215/ 0.25 mg-35 mcg (28) tablet 11-12 00:00: 00 Yes [id number] 1{tbl} Take 1 tablet by mouth daily. [facility] norgestimat e-ethinyl estradiol 0.18/0.215/ 0.25 mg-35 mcg (28) tablet 11-12 00:00: 00 Yes [id number] 1{tbl} Take 1 tablet by mouth daily. [facility] norgestimat e-ethinyl estradiol 0.18/0.215/ 0.25 mg-35 mcg (28) tablet 11-12 00:00: 00 Yes [id number] 1{tbl} Take 1 tablet by mouth daily. [facility] norgestimat e-ethinyl estradiol 0.18/0.215/ 0.25 mg-35 mcg (28) tablet 11-12 00:00: 00 Yes [id number] 1{tbl} Take 1 tablet by mouth daily. [facility] norgestimat e-ethinyl estradiol 0.18/0.215/ 0.25 mg-35 mcg (28) tablet 11-12 00:00: 00 Yes [id number] 1{tbl} Take 1 tablet by mouth daily. [facility] gabapentin 600 mg tablet 09-10 00:00: [address] [facility] gabapentin 600 mg tablet 09-10 00:00: 00 Yes [facility] gabapentin 600 mg tablet 09-10 00:00: 00 Yes [facility] gabapentin 600 mg tablet 09-10 00:00: 00 Yes [facility] gabapentin 600 mg tablet 09-10 00:00: 00 Yes [facility] amitriptyli ne 25 mg tablet 08-27 00:00: 00 Yes [facility] amitriptyli ne 25 mg tablet 08-27 00:00: 00 Yes [facility] amitriptyli ne 25 mg tablet 08-27 00:00: 00 Yes [facility] amitriptyli ne 25 mg tablet 08-27 00:00: 00 Yes [facility] amitriptyli ne 25 mg tablet 08-27 00:00: 00 Yes [facility] Immunizations Ordered Immunization Name Filled Immunization Name Date Status Comments Source TDAP 2012-06-23 00:00:00 Completed [facility] TDAP 2012-06-23 00:00:00 Completed [facility] TDAP 2012-06-23 00:00:00 Completed [facility] TDAP 2012-06-23 00:00:00 Completed [facility] Tdap- (Boostrix, Adacel) 2012-06-23 00:00:00 Completed Kecia Ayala Rubella 2011-05-14 00:00:00 Completed [facility] Rubella 2011-05-14 00:00:00 Completed [facility] Rubella 2011-05-14 00:00:00 Completed [facility] Rubella 2011-05-14 00:00:00 Completed [facility] Rubella 2011-05-14 00:00:00 Completed Kecia Begum External TDAP Unknown Completed [facility] Rubella Unknown Completed [facility] Vital Signs Vital Name Observation Time Observation Value Comments S ource Systolic blood pressure 2022-08-27 16:55:00 126 mm[Hg] Kecia reyez - External Diastolic blood pressure 2022-08-27 16:55:00 84 mm[Hg] Kecia Carranza ld - External Heart rate 2022-08-27 16:55:00 88 /min Rusty y Seybold - External Body temperature 2022-08-27 16:55:00 36.56 Nichol Kecia Sanchezybold - External Respiratory rate 2022-08-27 16:55:00 15 /min Kecia Sanchezybold - External Body height 2022-08-27 16:55:00 177.8 cm Елена ey Seybold - External Body weight 2022-08-27 16:55:00 169.645 kg Елена ey Seybold - External BMI 2022-08-27 16:55:00 53.66 kg/m2 Елена ey Seybold - External Systolic blood pressure 2022-04-29 14:10:00 163 mm[Hg] [facility] Diastolic blood pressure 2022-04-29 14:10:00 102 mm[Hg] [facility] Heart rate 2022-04-29 14:10:00 82 /min [facility] Body temperature 2022-04-29 14:10:00 37.5 Nichol [facility] Respiratory rate 2022-04-29 14:10:00 18 /min [facility] Body weight 2022-04-29 14:10:00 [facility]233 [facility] BMI 2022-04-29 14:10:00 52.65 kg/m2 [facility] Oxygen saturation in Arterial blood by Pulse oximetry 2022-04-29 14:10:00 100 /min [facility] Procedures Procedure Date / Time Performed Performing Clinicia n Source NOTICE OF PRIVACY PRACTICES 2022-04-29 14:05:26 Doctor Unassigned, Bowring [facility] CONSENT/REFUSAL FOR DIAGNOSIS AND TREATMENT 2022-04-29 14:03:53 Doctor Unassigned, Bowring [facility] Encounters Start Date/Time End Date/Time Encounter Type Admission Type Attending [facility] Care Facility Care Department Encounter ID Source 2023-08-03 00:00:00 2023-08-03 00:00:00 Outpatient MD KECIA TINEO [id number] Kecia Richter 2023-07-30 00:00:00 2023-07-30 00:00:00 Outpatient DONBONNIEGILDA MAHONEY [id number] Kecia Seybold 2023-05-29 00:00:00 2023-05-29 00:00:00 Outpatient DON ELAN MAHONEY [id number] Kecia Seybold 2022-11-06 00:00:00 2022-11-06 00:00:00 Outpatient DON ELAN MAHONEY [id number] Kecia Seybold 2022-11-04 00:00:00 2022-11-04 00:00:00 Outpatient JANIA HUIZAR [id number] Kecia Seybold 2022-09-30 00:00:00 2022-09-30 00:00:00 Outpatient ELAN OCHOA [id number] Kecia Seybold 2022-09-29 00:00:00 2022-09-29 00:00:00 Outpatient ELAN OCHOA [id number] Kecia Seybold 2022-09-29 00:00:00 2022-09-29 00:00:00 Outpatient DON ELAN MAHONEY [id number] Kecia Seybold 2022-09-24 10:30:00 2022-09-24 10:30:00 Outpatient BHUPENDRA, JANIA MAHONEY [id number] Kecia Seybold 2022-09-17 00:00:00 2022-09-17 00:00:00 Outpatient ELAN OCHOA [id number] Kecia Seybold 2022-09-11 15:00:00 2022-09-11 15:00:00 Outpatient KECIA MAHONEY [id number] Kecia Seybold 2022-09-11 13:40:00 2022-09-11 13:40:00 Outpatient KECIA MAHONEY [id number] Kecia Seybold 2022-09-09 00:00:00 2022-09-09 00:00:00 Outpatient ELAN OCHOA [id number] Kecia Seybold 2022-08-27 10:15:00 2022-08-27 10:15:00 Outpatient ELAN OCHOA [id number] Kecia Richter 2022-07-01 11:00:00 2022-07-01 11:00:00 Outpatient ELAN OCHOA [id number] Kecia Richter 2022-06-10 12:14:52 2022-06-10 23:59:00 Outpatient R RADIOLOGY [facility] [id number] [facility] 2022-06-10 12:14:52 2022-06-10 23:59:00 Hospital Encounter Radiology [facility] [id number] [id number] [facility] 2022-04-29 11:46:50 2022-04-29 23:59:00 Outpatient R RADIOLOGY [facility] [id number] [facility] 2022-04-29 11:45:00 2022-04-29 23:59:00 Hospital Encounter Radiology [facility] [id number] [id number] [facility] 2022-04-29 09:13:00 2022-04-29 10:49:00 Emergency X Karli NUGENT [facility] E[facility] [id number] [facility] 2022-04-29 09:13:00 2022-04-29 10:49:00 Emergency Karli Nugentge [facility] [id number] [id number] [facility] 2022-04-29 00:00:00 2022-04-29 00:00:00 Orders Only Doctor Unassigned, Bowring [facility] [id number] [id number] [facility] 2022-04-29 00:00:00 2022-04-29 00:00:00 Patient Secure Msg Doctor Unassigned, Bowring [facility] [id number] [id number] [facility]
--- NOTE | 2023-08-19 13:14 | EDPHYS ---
Physician Documentation [facility] Name: Vibha Resendez Age: 38 yrs Sex: Female : 1985 Arrival Date: 08/19/2023 Time: 12:55 Bed IW1 Private MD: ED Physician Quentin Baires HPI: 08/19 13:12 This 38 yrs old Black Female presents to ER via Ambulatory with complaints of Allergic kb Reaction. 13:13 Male patient is a 38-year-old female who presents for burning and itching to eyes, nose kb and skin. States it occurred after cooking on Thursday and has not gotten any better. Reports now she starting to have some shortness of breath with that as well. States she cooked chicken spaghetti and then cleaned up afterwards with bleach so she is not sure which is having a reaction to.. Historical: - Allergies: 13:01 Decadron IM; ko1 - PMHx: 13:01 Bipolar disorder; Bronchitis; Compressed vertebrae; Diverticulitis; Hypertensive ko1 disorder; Left ventricular atrophy; Pneumonia; Sleep Apnea; vitamin d deficiency; - Immunization history:: Adult Immunizations up to date. - Social history:: Smoking status: Patient denies any tobacco usage or history of. ROS: 13:10 Constitutional: Negative for fever, chills, and weight loss, kb 13:10 Respiratory: Positive for shortness of breath, 13:10 Skin: Positive for burning, itching, 13:10 All other systems are negative, Exam: 13:11 Constitutional: This is a well developed, well nourished patient who is awake, alert, kb and in no acute distress. Head/Face: Normocephalic, atraumatic. ENT: Moist Mucous membranes Cardiovascular: Regular rate Respiratory: Respirations even and unlabored. No increased work of breathing. Talking in full sentences Abdomen/GI: Soft, non-tender. No distention Skin: Warm, dry with normal turgor. Normal color. MS/ Extremity: Pulses equal, no cyanosis. Neurovascular intact. Full, normal range of motion. Neuro: Awake and alert, GCS 15, oriented to person, place, time, and situation. Moves all extremities. Normal gait. Vital Signs: 13:04 BP 132 / 85; Pulse 89; Resp 17; Temp 98.3; Pulse Ox 100% ; ko1 MDM: 13:00 Patient medically screened. kb 13:11 Differential diagnosis: anaphylaxis, angioedema, urticaria. Data reviewed: vital signs, kb nurses notes. Counseling: I had a detailed discussion with the patient and/or guardian regarding the historical points, exam findings, and any diagnostic results supporting the discharge/admit diagnosis, the need for outpatient follow up, a family practitioner, to return to the emergency department if symptoms worsen or persist or if there are any questions or concerns that arise at home. Administered Medications: 13:12 Drug: Famotidine PO 20 mg PO once Route: PO; ll1 13:12 Drug: diphenhydrAMINE PO 25 mg PO once Route: PO; ll1 Disposition Summary: 08/19/23 13:13 Discharge Ordered Notes: Location: Home kb Condition: Stable kb Diagnosis - Allergy, unspecified kb Followup: kb - With: Emergency Department - When: As needed - Reason: Worsening of condition Followup: kb - With: Private Physician - When: 2 - 3 days - Reason: Recheck today's complaints, Continuance of care, Re-evaluation by your physician Discharge Instructions: - Allergies, Adult, [id number] kb - Discharge Summary Sheet ll1 Forms: - Medication Reconciliation Form kb - Thank You Letter kb - Antibiotic Education kb - Prescription Opioid Use kb - Patient Portal Instructions kb - Leadership Thank You Letter kb - Work release form ll1 Prescriptions: - Pepcid 20 mg Oral Tablet - take 1 tablet ORAL route every 12 hours for 5 days; 10 tablet; Refills: 0, kb Product Selection Permitted Signatures: Tamra Fish FNP-C FNP-Darryl Michel, RN RN ll1 Justina Pastrana, LORNE RN ko1
--- NOTE | 2023-08-19 13:14 | ER ---
Nurse's Notes [facility] Name: Vibha Resendez Age: 38 yrs Sex: Female : 1985 Arrival Date: 08/19/2023 Time: 12:55 Bed IW1 Private MD: Diagnosis: Allergy, unspecified Presentation: 08/19 12:59 Chief complaint: Patient states: was cooking Thursday and eyes started burning, nose is ko1 burning, today skin is burning and itching, having some shortness of breath, took Claritin 10mg this morning but it was . Coronavirus screen: At this time, the client does not indicate any symptoms associated with coronavirus-19. Ebola Screen: No symptoms or risks identified at this time. Onset: The symptoms/episode began/occurred gradually, 2 day(s) ago. Anaphylaxis evaluation, no signs or symptoms of anaphylaxis were noted. Initial Sepsis Screen: Does the patient meet any 2 criteria? No. Patient's initial sepsis screen is negative. Does the patient have a suspected source of infection? No. Patient's initial sepsis screen is negative. Risk Assessment: Do you want to hurt yourself or someone else? Patient reports no desire to harm self or others. Onset of symptoms is unknown. 12:59 Method Of Arrival: Ambulatory ko1 12:59 Acuity: HERIBERTO 4 ko1 Triage Assessment: 13:01 General: Appears in no apparent distress. Behavior is calm, cooperative, appropriate ko1 for age. Pain: Denies pain. Historical: - Allergies: 13:01 Decadron IM; ko1 - PMHx: 13:01 Bipolar disorder; Bronchitis; Compressed vertebrae; Diverticulitis; Hypertensive ko1 disorder; Left ventricular atrophy; Pneumonia; Sleep Apnea; vitamin d deficiency; - Immunization history:: Adult Immunizations up to date. - Social history:: Smoking status: Patient denies any tobacco usage or history of. Screenin:29 [facility] ED Fall Risk Assessment (Adult) History of falling in the last 3 months, ap3 including since admission No falls in past 3 months (0 pts). Abuse screen: Denies threats or abuse. Nutritional screening: No deficits noted. Tuberculosis screening: No symptoms or risk factors identified. Assessment: 13:12 Reassessment: No changes from previously documented assessment. Patient and/or family ll1 updated on plan of care and expected duration. Pain level reassessed. Patient is alert, oriented x 3, equal unlabored respirations, skin warm/dry/pink. 13:30 Respiratory: Airway is patent Respiratory effort is even, unlabored. ap3 Vital Signs: 13:04 BP 132 / 85; Pulse 89; Resp 17; Temp 98.3; Pulse Ox 100% ; ko1 ED Course: 12:57 Patient arrived in ED. im 13:00 Tamra Fish FNP-C [facility] kb 13:00 Quentin Baires MD is Attending Physician. kb 13:01 Triage completed. ko1 13:01 Arm band placed on right wrist. Patient placed in an exam room, on pulse oximetry, ko1 Patient notified of wait time. 13:30 Patient has correct armband on for positive identification. Provided Education on: ap3 discharge instructions. 13:30 No provider procedures requiring assistance completed. Patient did not have IV access ap3 during this emergency room visit. Administered Medications: 13:12 Drug: Famotidine PO 20 mg PO once Route: PO; ll1 13:12 Drug: diphenhydrAMINE PO 25 mg PO once Route: PO; ll1 Medication: 13:30 VIS not applicable for this client. ap3 Outcome: 13:13 Discharge ordered by MD. kb 13:30 Discharged to home ambulatory, ap3 13:30 Condition: good 13:30 Discharge instructions given to patient, Instructed on discharge instructions, follow up and referral plans. medication usage, Demonstrated understanding of instructions, follow-up care, medications, Prescriptions given X 1, 13:30 Patient left the ED. ap3 Signatures: Tamra Fish FNP-C FNP-Ckb Prokisch, Amanda, RN RN ap3 Darryl Gonsales RN RN ll1 Justina Pastrana, LORNE RN ko1 Maria T Parks im
[2023-08-20 21:17] VITALS: BP 132/85; TEMP 98.3; O2SAT 100
== END ==
LOC: ER 12:55
DX: R06.02 Shortness of breath (principal); L29.9 Pruritus, unspecified; Z88.8 Allergy status to other drugs, medicaments and biological substances

== ENCOUNTER 2024-04-21 12:16 | Emergency (ER) | payer BC ==
[2024-04-21] MEDS ORDERED: HYDROCODONE/APAP 5/325 MG TAB ONE (12:36)
[2024-04-21] MEDS ORDERED: KETOROLAC 30 MG/ML INJ ONE (12:36)
--- NOTE | 2024-04-21 13:13 | ER ---
Nurse's Notes [facility] Name: Vibha Resendez Age: 38 yrs Sex: Female : 1985 Arrival Date: 04/21/2024 Time: 12:16 Bed DX4 Private MD: Diagnosis: Low back pain Presentation: 04/21 12:28 Chief complaint: Patient states: lower back pain, pt states "my doctor won't refill my aa5 pregabalin and methocarbamol until I go do some therapy". Coronavirus screen: At this time, the client does not indicate any symptoms associated with coronavirus-19. Ebola Screen: Patient denies travel to an Ebola-affected area in the 21 days before illness onset. Initial Sepsis Screen: Does the patient meet any 2 criteria? No. Patient's initial sepsis screen is negative. Does the patient have a suspected source of infection? No. Patient's initial sepsis screen is negative. Risk Assessment: Do you want to hurt yourself or someone else? Patient reports no desire to harm self or others. Onset of symptoms was 2023. 12:28 Acuity: HERIBERTO 4 aa5 12:28 Method Of Arrival: Ambulatory aa5 Historical: - Allergies: 12:29 Decadron IM; aa5 - PMHx: 12:29 Bipolar disorder; Bronchitis; Compressed vertebrae; Diverticulitis; Hypertensive aa5 disorder; Left ventricular atrophy; Pneumonia; Sleep Apnea; vitamin d deficiency; - Immunization history:: Adult Immunizations unknown. - Infectious Disease History:: Denies. - Social history:: Smoking status: Patient reports the use of cigarette tobacco products. - Family history:: not pertinent. - Hospitalizations: : No recent hospitalization is reported. Screenin:26 [facility] ED Fall Risk Assessment (Adult) History of falling in the last 3 months, iw including since admission No falls in past 3 months (0 pts) Confusion or Disorientation No (0 pts) Intoxicated or Sedated No (0 pts) Impaired Gait No (0 pts) Mobility Assist Device Used No (0 pt) Altered Elimination No (0 pt) Score/Fall Risk Level 0 - 2 = Low Risk Oriented to surroundings, Maintained a safe environment. Abuse screen: Denies threats or abuse. Nutritional screening: No deficits noted. Tuberculosis screening: No symptoms or risk factors identified. Assessment: 13:25 General: Appears in no apparent distress. comfortable, Behavior is calm, cooperative. iw Pain: Complains of pain in back. Neuro: Level of Consciousness is awake, alert, obeys commands, Oriented to person, place, time, situation, Moves all extremities. Cardiovascular: Patient's skin is warm and dry. Respiratory: Respiratory effort is even, unlabored, Respiratory pattern is regular. Derm: Skin is intact, is healthy with good turgor. Musculoskeletal: Range of motion: intact in all extremities. Vital Signs: 12:28 BP 116 / 85; Pulse 71; Resp 18 S; Temp 97.8(TE); Pulse Ox 100% on R/A; Weight 144.7 kg aa5 (R); Height 5 ft. 10 in. (R); 12:28 Body Mass Index 45.77 (144.70 kg, 177.8 cm) aa5 ED Course: 12:19 Patient arrived in ED. mr 12:25 Thom Calles MD is Attending Physician. rn 12:28 Arm band placed on. aa5 12:29 Triage completed. aa5 13:25 Anjana Rich RN is Primary Nurse. iw 13:25 Patient has correct armband on for positive identification. Provided Education on: . iw 13:26 No provider procedures requiring assistance completed. Patient did not have IV access iw during this emergency room visit. Administered Medications: 12:44 Drug: Ketorolac IM 30 mg IM once Route: IM; Site: right deltoid; aa5 13:00 Follow up: Response: No adverse reaction iw 12:44 Drug: HYDROcodone-acetaminophen PO 5 mg-325 mg 1 tabs PO once Route: PO; aa5 13:00 Follow up: Response: No adverse reaction; Medication Administered at Departure iw Medication: 12:43 VIS not applicable for this client. iw Outcome: 13:11 Discharge ordered by . rn 13:26 Discharged to home ambulatory, iw 13:26 Condition: good 13:26 Discharge instructions given to patient, Instructed on discharge instructions, follow up and referral plans. Demonstrated understanding of instructions, follow-up care, medications, Prescriptions given X 2, 13:27 Patient left the ED. iw Signatures: Callie Carrasco, Reg Reg mr Anjana Rich RN RN iw Thom Calles MD MD rn Calderon, Audri, RN RN aa5 Corrections: (The following items were deleted from the chart) 12:31 12:28 BP 116 / 85; Pulse 71bpm; Resp 18bpm; Spontaneous; Pulse Ox 100% RA; Temp 97.8F aa5 Temporal; aa5 12:30 Social history: Smoking status: Patient denies any tobacco usage or history of. aa5 aa5
--- NOTE | 2024-04-21 13:13 | EDPHYS ---
Physician Documentation [facility] Name: Vibha Resendez Age: 38 yrs Sex: Female : 1985 Arrival Date: 04/21/2024 Time: 12:16 Bed DX4 Private MD: ED Physician Thom Calles HPI: 04/21 13:07 This 38 yrs old Black Female presents to ER via Ambulatory with complaints of Back Pain.rn 13:07 The patient presents with pain that is chronic. The symptoms are located in the low rn back. Onset: The symptoms/episode began/occurred at an unknown time. The pain does not radiate. Severity of symptoms: At their worst the symptoms were mild, in the emergency department the symptoms are unchanged. The patient has experienced similar episodes in the past. Patient reports chronic back pain, has history of vertebral problems. Has been taking pregabalin and methocarbamol with improvement somewhat. Ran out of her medication recently. Here for pain and for refill of medication. Denies any new symptoms. No bowel or bladder issues. No weakness or numbness.. Historical: - Allergies: 12:29 Decadron IM; aa5 - PMHx: 12:29 Bipolar disorder; Bronchitis; Compressed vertebrae; Diverticulitis; Hypertensive aa5 disorder; Left ventricular atrophy; Pneumonia; Sleep Apnea; vitamin d deficiency; - Immunization history:: Adult Immunizations unknown. - Infectious Disease History:: Denies. - Social history:: Smoking status: Patient reports the use of cigarette tobacco products. - Family history:: not pertinent. - Hospitalizations: : No recent hospitalization is reported. ROS: 13:07 Constitutional: Negative for fever, chills, and weight loss, Abdomen/GI: Negative for rn abdominal pain, nausea, vomiting, diarrhea, and constipation, Back: Positive for chronic back pain : Negative for injury, bleeding, discharge, and swelling, MS/Extremity: Negative for injury and deformity, Neuro: Negative for headache, weakness, numbness, tingling, and seizure, Exam: 13:07 Constitutional: This is a well developed, well nourished patient who is awake, alert, rn and in no acute distress. Back: No focal spinal tenderness Vital Signs: 12:28 BP 116 / 85; Pulse 71; Resp 18 S; Temp 97.8(TE); Pulse Ox 100% on R/A; Weight 144.7 kg aa5 (R); Height 5 ft. 10 in. (R); 12:28 Body Mass Index 45.77 (144.70 kg, 177.8 cm) aa5 MDM: 12:25 Patient medically screened. rn 13:11 Differential diagnosis: chronic back pain, Osteoarthritis sprain. Data reviewed: vital rn signs, nurses notes, and as a result, I will discharge patient. Counseling: I had a detailed discussion with the patient and/or guardian regarding the historical points, exam findings, and any diagnostic results supporting the discharge/admit diagnosis, the need for outpatient follow up, to return to the emergency department if symptoms worsen or persist or if there are any questions or concerns that arise at home. Response to treatment: the patient's symptoms have mildly improved after treatment. Special discussion: I discussed with the patient/guardian in detail that at this point there is no indication for admission to the hospital. It is understood, however, that if the symptoms persist or worsen the patient needs to return immediately for re-evaluation. Administered Medications: 12:44 Drug: Ketorolac IM 30 mg IM once Route: IM; Site: right deltoid; aa5 13:00 Follow up: Response: No adverse reaction iw 12:44 Drug: HYDROcodone-acetaminophen PO 5 mg-325 mg 1 tabs PO once Route: PO; aa5 13:00 Follow up: Response: No adverse reaction; Medication Administered at Departure iw Disposition Summary: 04/21/24 13:11 Discharge Ordered Notes: Location: Home rn Problem: an ongoing problem rn Symptoms: have improved rn Condition: Stable rn Diagnosis - Low back pain rn Followup: rn - With: Private Physician - When: As needed - Reason: Recheck today's complaints, Re-evaluation by your physician Discharge Instructions: - Discharge Summary Sheet rn - Chronic Back Pain rn Forms: - Work release form iw - Medication Reconciliation Form rn - 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 - Prescription Opioid Use rn - Patient Portal Instructions rn - Leadership Thank You Letter rn Prescriptions: - gabapentin 100 mg Oral capsule - take 1 capsule ORAL route every 12 hours As needed; 60 capsule; Refills: 0, rn Product Selection Permitted - Diclofenac Sodium 75 mg Oral tablet, delayed release (enteric coated) - take 1 tablet ORAL route 2 times per day; 20 tablet; Refills: 0, Product rn Selection Permitted Signatures: CallesThom MD MD rn Calderon, Audri, RN RN aa5 Anjana Rich RN Corrections: (The following items were deleted from the chart) 12:31 12:30 Social history: Smoking status: Patient denies any tobacco usage or history of. jennifer rodriguez
[2024-04-21 14:06] VITALS: BP 116/85; TEMP 97.8; O2SAT 100
== END 2024-04-21 13:27 | disposition home or self-care (01) ==
LOC: ER 12:16
DX: M54.50 Low back pain, unspecified (principal); Z72.0 Tobacco use